=== PATIENT | female | born 1950 | race Caucasian/White ===

== ENCOUNTER 2018-01-25 10:54 | Inpatient (IN) | payer MEDICARE, BC ==
[~2018-01-25] VITALS: Ht 172.7 cm; Wt 72.6 kg
--- NOTE | 2018-01-25 11:02 | ER Report ---
History and Physical Time Seen By MD: 11:02 Hx. of Stated Complaint: PATIENT WAS STEPPED ON BY A HORSE. SHE IS REPORTING RIGHT SIDED RIB PAIN HPI/ROS 67-year-old otherwise healthy female not on any daily medications presents to the emergency department with pain in her right lower chest and right mid back after being stepped on by a horse prior to arrival. She states she was try to keep to horses at which time she got between material, was knocked down, and the larger of the 2 horses stepped on her chest at least once. She denies any other pain or trauma. She has no abdominal pain. She reports shortness of breath and pain with inspiration. Her pain is localized to the right side of her chest. She has no midline pain or left-sided chest pain. No other complaints or injuries. Allergies: Coded Allergies: Sulfa (Sulfonamide Antibiotics) (Verified Allergy, Intermediate, 01/25/18) aspirin (Verified Allergy, Intermediate, 01/25/18) Reviewed Nurses Notes: Yes Hx Smoking: No Smoking Status: Never Smoker Exposure to Second Hand Smoke?: No Hx Substance Use Disorder: No Hx Alcohol Use: No Constitutional Vital Sign - Last 24 Hours 01/25/18 01/25/18 01/25/18 01/25/18 10:54 10:56 11:09 11:14 Temp 97.6 Pulse 59 65 63 57 Resp 28 B/P (MAP) 115/71 Pulse Ox 98 93 98 O2 Delivery Nasal Cannula 01/25/18 01/25/18 01/25/18 01/25/18 11:19 11:24 11:29 11:34 Pulse 61 58 58 54 Resp 37 26 Pulse Ox 96 95 96 96 01/25/18 01/25/18 01/25/18 01/25/18 11:39 11:44 11:54 11:59 Pulse 53 55 53 55 Resp 26 30 24 Pulse Ox 98 98 99 01/25/18 01/25/18 01/25/18 01/25/18 12:04 12:14 12:19 12:24 Pulse 58 53 54 53 Resp 28 12 34 10 Pulse Ox 100 99 100 100 Intake and Output 01/25/18 01/25/18 01/26/18 15:00 23:00 07:00 Intake Total 1000 ml Balance 1000 ml Physical Exam General Appearance: The patient is alert, has no immediate need for airway protection and no signs of toxicity. Eyes: Pupils equal and round no pallor or injection. ENT, Mouth: Mucous membranes are moist. Respiratory: There are no retractions, lungs are distant due to swallow inspiration from pain. TTP of the right chest and right upper back Cardiovascular: Regular rate and rhythm. Gastrointestinal: Abdomen is soft and non tender, no masses, bowel sounds normal. Neurological: strength/sensation grossly in tact, no focal neuro deficits, n/v in tact throughout Skin: Warm and dry, no rashes. Musculoskeletal: See chest exam Neck is supple non tender. Extremities are nontender, nonswollen and have full range of motion. DIFFERENTIAL DIAGNOSIS: After history and physical exam differential diagnosis was considered for pneumothorax, rib fractures, pulmonary contusion, other intrathoracic injuries, other traumatic injuries including intra-abdominal injuries. Medical Decision Making Data Points Result Diagram: 01/25/18 1110 01/25/18 1110 Laboratory Hematology Test 01/25/18 11:10 01/25/18 13:01 Red Blood Count 4.52 M/uL (4.17-5.56) Mean Corpuscular Volume 95.1 fL (80.0-96.0) Mean Corpuscular Hemoglobin 33.0 pg (26.0-33.0) Mean Corpuscular Hemoglobin Concent 34.7 g/dL (32.0-36.0) Red Cell Distribution Width 13.2 % (11.5-14.5) Mean Platelet Volume 9.0 fL (7.2-11.1) Neutrophils (%) (Auto) 82.3 % (39.4-72.5) Lymphocytes (%) (Auto) 10.5 % (17.6-49.6) Monocytes (%) (Auto) 6.1 % (4.1-12.4) Eosinophils (%) (Auto) 0.5 % (0.4-6.7) Basophils (%) (Auto) 0.6 % (0.3-1.4) Nucleated RBC Relative Count (auto) 0.0 /100WBC Neutrophils # (Auto) 7.1 K/uL (2.0-7.4) Lymphocytes # (Auto) 0.9 K/uL (1.3-3.6) Monocytes # (Auto) 0.5 K/uL (0.3-1.0) Eosinophils # (Auto) 0.0 K/uL (0.0-0.5) Basophils # (Auto) 0.0 K/uL (0.0-0.1) Nucleated RBC Absolute Count (auto) 0.00 K/uL Sodium Level 141 mmol/L (137-145) Potassium Level 4.3 mmol/L (3.5-5.0) Chloride Level 105 mmol/L (98-107) Carbon Dioxide Level 27 mmol/L (22-31) Blood Urea Nitrogen 19 mg/dl (7-18) Creatinine 1.10 mg/dl (0.52-1.04) Glomerular Filtration Rate Calc 49.8 Random Glucose 114 mg/dl (75-110) Calcium Level 8.8 mg/dl (8.4-10.2) Total Bilirubin 0.5 mg/dl (0.2-1.3) Aspartate Amino Transf (AST/SGOT) 42 U/L (0-35) Alanine Aminotransferase (ALT/SGPT) 34 U/L (0-56) Alkaline Phosphatase 95 U/L (0-126) Total Protein 6.7 g/dl (6.3-8.2) Albumin 3.9 g/dl (3.5-5.0) Prothrombin Time 13.9 seconds (12.0-14.4) Prothromb Time International Ratio 1.06 Activated Partial Thromboplast Time 24 seconds (23-35) Chemistry Test 01/25/18 11:10 01/25/18 13:01 White Blood Count 8.6 k/uL (4.5-11.0) Red Blood Count 4.52 M/uL (4.17-5.56) Hemoglobin 14.9 g/dL (12.0-16.0) Hematocrit 43.0 % (34.0-47.0) Mean Corpuscular Volume 95.1 fL (80.0-96.0) Mean Corpuscular Hemoglobin 33.0 pg (26.0-33.0) Mean Corpuscular Hemoglobin Concent 34.7 g/dL (32.0-36.0) Red Cell Distribution Width 13.2 % (11.5-14.5) Platelet Count 225 K/uL (150-450) Mean Platelet Volume 9.0 fL (7.2-11.1) Neutrophils (%) (Auto) 82.3 % (39.4-72.5) Lymphocytes (%) (Auto) 10.5 % (17.6-49.6) Monocytes (%) (Auto) 6.1 % (4.1-12.4) Eosinophils (%) (Auto) 0.5 % (0.4-6.7) Basophils (%) (Auto) 0.6 % (0.3-1.4) Nucleated RBC Relative Count (auto) 0.0 /100WBC Neutrophils # (Auto) 7.1 K/uL (2.0-7.4) Lymphocytes # (Auto) 0.9 K/uL (1.3-3.6) Monocytes # (Auto) 0.5 K/uL (0.3-1.0) Eosinophils # (Auto) 0.0 K/uL (0.0-0.5) Basophils # (Auto) 0.0 K/uL (0.0-0.1) Nucleated RBC Absolute Count (auto) 0.00 K/uL Glomerular Filtration Rate Calc 49.8 Calcium Level 8.8 mg/dl (8.4-10.2) Total Bilirubin 0.5 mg/dl (0.2-1.3) Aspartate Amino Transf (AST/SGOT) 42 U/L (0-35) Alanine Aminotransferase (ALT/SGPT) 34 U/L (0-56) Alkaline Phosphatase 95 U/L (0-126) Total Protein 6.7 g/dl (6.3-8.2) Albumin 3.9 g/dl (3.5-5.0) Prothrombin Time 13.9 seconds (12.0-14.4) Prothromb Time International Ratio 1.06 Activated Partial Thromboplast Time 24 seconds (23-35) Coagulation Test 01/25/18 13:01 Prothrombin Time 13.9 seconds Prothromb Time International Ratio 1.06 Activated Partial Thromboplast Time 24 seconds EKG/Imaging Imaging X-ray: cxr was obtained. I viewed the images myself on the PACS system. My interpretation of the images is: right sided PTX with 7/8th rib fractures. The radiologist interpretation had no clinically significant variation from this interpretation. Results: CT scan of the chest was obtained. The results of the study areptx, 2-8th rib fractures, possible hemothorax. The study was read by the radiologist. I viewed the images myself on the PACS system. ED Course/Re-evaluation ED Course 67-year-old female brought to the emergency department by ambulance after her right chest was stepped on by a horse. She reports that her pain is isolated to her right chest and back. There is no loss of consciousness. She sustained a right sided hemopneumothorax with multiple rib fractures. A chest tube was placed under procedural sedation. Post chest tube x-ray shows re-expansion of the lung. I spoke with Dr. Bella Chase who is at the bedside as well and has reviewed the case and will admit the patient for further definitive care. Procedure Procedure: Chest tube placement. The indication for the procedure was a hemopneumothorax. A timeout was observed. The patient was prepped in a sterile fashion. The patient was anesthetized with 1% lidocaine with epinephrine. After blunt dissection a 28 Niuean chest tube was placed in the 5th intercostal space on the right side. The tube was sutured in place and dressed. Post placement chest x-ray demonstrated the tube to be in the appropriate position. Following placement of the tube the patient's condition was improved. The patient tolerated the procedure well there were no complications. The procedure was performed by myself. Procedure: Procedural sedation. A pre-sedation evaluation was completed on the patient at 1445. Patient is an appropriate candidate for procedural sedation. The risks of the sedation were discussed with the patient. A time out was completed. The patient was reevaluated immediately prior to initiation of sedation. The patient was sedated with ketamine and propofol. The patient was monitored with continuous pulse oximetry and satellite project site monitor. There were no complications and no significant hypoxemia. I remained at the bedside for the sedation. The total time I spent in the procedural sedation was 30 minutes. Post sedation evaluation: Patient was alert and cooperative, hemodynamically stable with appropriate respiratory status, temperature and pain control without ongoing nausea and vomiting. Decision to Disposition Date: Jan 25, 2018 Decision to Disposition Time: 15:41 Depart Departure Latest Vital Signs Vital Signs Date Time Temp Pulse Resp B/P (MAP) Pulse Ox O2 Delivery O2 Flow Rate FiO2 01/25/18 12:24 53 10 100 01/25/18 10:56 97.6 115/71 Nasal Cannula Impression: Primary Impression: Hemopneumothorax on right Additional Impression: Rib fractures Condition: Improved Disposition: Admitted from ER Problem Qualifiers Additional Impression: Rib fractures Encounter type: initial encounter Rib fracture type: multiple ribs Fracture type: closed Laterality: right Qualified Codes: S22.41XA - Multiple fractures of ribs, right side, initial encounter for closed fracture FRANCIS GUPTA MD Jan 25, 2018 11:02
[2018-01-25] MEDS ORDERED: ONDANSETRON 4 MG/2 ML VIAL IVP ONE ×2 (11:15→13:35)
[2018-01-25] MEDS ORDERED: NS(*) 0.9% 1000 ML BAG 1,000 ML IV ONE (11:20)
[2018-01-25] MEDS ORDERED: MORPHINE 2 MG/ML SYR IVP ONE (11:20)
[2018-01-25 12:00] LABS: PLATELET COUNT, AUTOMATED 225 K/uL (150-450)
--- NOTE | 2018-01-25 12:12 | RADIOLOGY IMAGING REPORT ---
FACILITY: [facility] PATIENT NAME: Muna Butler : 1950 MR: [id number] V: [id number] EXAM DATE: ORDERING PHYSICIAN: FRANCIS GUPTA TECHNOLOGIST: Location: [facility] - [place] Patient: Muna Butler : 1950 Visit/Account:[id number] Date of Sevice: 01/25/2018 CHEST SINGLE AP HISTORY: Chest pain right side. COMPARISON: None FINDINGS: Cardiomediastinal contours: The heart size is normal. Lungs and pleura: There is parenchymal density in the right lower lobe suggestive of a pleural effusi on and or infiltrate. There is minimal parenchymal density in the lingula that could represent an in filtrate and/or atelectasis. Bones/soft tissues: Lucency on the outer side of the right lateral chest wall is suggestive of subcut aneous emphysema. This would suggest rib fractures on the right side. There appear to be subtle fra ctures involving ribs 7 and 8. A rib series is recommended for further evaluation. IMPRESSION: 1. Subcutaneous emphysema outside the right lateral chest wall associated with rib fractures involvi ng ribs 7 and 8. Correlate with upcoming CT scan. 2. Parenchymal density in the right lower lobe likely representing atelectasis, infiltrate or pleura l effusion. 3. No findings of a pneumothorax. 4. Lingular density suggestive of scar and/or atelectasis. Report Dictated By: Emil Ennis MD at 01/25/2018 12:05 PM Report E-Signed By: Emil Ennis MD at 01/25/2018 12:09 PM WSN:[email or web address]
[2018-01-25] MEDS ORDERED: IOPAMIDOL 76% 100 ML INFUS BTL 100 ML ONE (12:25)
[2018-01-25 13:17] LABS: INR 1.06
--- NOTE | 2018-01-25 13:44 | RADIOLOGY IMAGING REPORT ---
FACILITY: [facility] PATIENT NAME: Muna Butler : 1950 MR: [id number] V: [id number] EXAM DATE: ORDERING PHYSICIAN: FRANCIS GUPTA TECHNOLOGIST: Location: [facility] - [place], [place] Patient: Muna Butler : 1950 Visit/Account:[id number] Date of Sevice: 01/25/2018 CT chest with contrast Indication: Stepped on chest by horse. Comparison: None. Technique: Axial CT images are obtained through the chest after administration of 75 mL Isovue 370 IV contrast. Reformatted coronal and sagittal images were reviewed. One of the following dose optimization techniques was utilized in the performance of this exam: Autom ated exposure control; adjustment of the mA and/or kV according to the patient's size; or use of an i terative reconstruction technique. Specific details can be referenced in the facility's radiology C T exam operational policy. Findings: Heart is normal size without pericardial effusion. Aorta shows no aneurysm or dissection. The pulmona ry arteries are grossly normal without indication of emboli. There is no mediastinal hematoma and there is no pathologic mediastinal adenopathy seen. There is a moderate right pneumothorax present approximately 30 percent without mediastinal shift. Th ere is small right pleural effusion and right basilar atelectasis. Small contusions to the right midd le lobe. Left lung shows no pneumothorax or pleural effusion with mild basilar atelectasis. Left lung shows no consolidations. No discrete lung nodules. Airways are clear. No acute vertebral body compressions. The T5 vertebral body shows mild compression with degenerative changes and prominent Schmorl's node. This findings appear chronic. There are small multilevel Schmor l nodes present with minimal degenerative changes seen elsewhere. The sternum appears intact. No appr eciable left rib fractures. Nondisplaced fractures of the following right ribs: Anterior second, thir d, fourth, anterolateral fifth, sixth and seventh. Lateral eighth. No other discrete right rib fractu res. Chest wall shows no enlarged axillary lymph nodes or masses. Subcutaneous air along the right la teral chest wall. Limited views of the upper abdomen are unremarkable. IMPRESSION: 1. Moderate right pneumothorax approximately 30 percent without mediastinal shift. Small right pleura l effusion with right basilar atelectasis and small contusions in the right middle lobe. 2. Multiple nondisplaced right rib fractures from 2 through 8. Subcutaneous air in the right chest wa ll. 3. Left lung shows mild basilar atelectasis. No other focal abnormality. 4. Other chronic findings as above. I called report to SAHIL Olivera at 01/25/2018 1:40 PM. Report Dictated By: Juan F Colbert at 01/25/2018 1:26 PM Report E-Signed By: Juan F Colbert at 01/25/2018 1:41 PM WSN:[id number]
[2018-01-25] MEDS ORDERED: PROPOFOL EMUL 10MG/ML 20 ML VL IV ONE (13:50)
[2018-01-25] MEDS ORDERED: KETAMINE HCL 200 MG/20 ML MDV IVP ONE (13:50)
[2018-01-25] MEDS ORDERED: LORazepam 2 MG/ML VIAL ONE (14:43)
[2018-01-25] MEDS ORDERED: MORPHINE 4 MG/ML SDV ONE (14:44)
--- NOTE | 2018-01-25 15:05 | RADIOLOGY IMAGING REPORT ---
FACILITY: [facility] PATIENT NAME: Muna Butler : 1950 MR: [id number] V: [id number] EXAM DATE: ORDERING PHYSICIAN: FRANCIS GUPTA TECHNOLOGIST: Location: [facility] - [place] Patient: Muna Butler : 1950 Visit/Account:[id number] Date of Sevice: 01/25/2018 2 VIEWS CHEST INDICATION: Chest tube placement. COMPARISON: X-ray done earlier in the day. CT chest done earlier in the day. FINDINGS: Cardiomediastinal silhouette and pulmonary vessels within normal limits. Right chest tube is in place. No residual appreciable pneumothorax. No significant residual pleural f luid. Continued right basilar atelectasis. Minimal left basilar atelectasis. No left effusion or pneu mothorax. Subcutaneous air seen along the right chest wall and is unchanged. The upper lung segura ar e clear. Upper abdomen is unremarkable. Multiple right rib fractures again identified. No other acute bony abnormality. IMPRESSION: 1. Right chest tube is in place. No appreciable residual pneumothorax or pleural fluid. Continued rig ht basilar atelectasis. Minimal left basilar atelectasis. Report Dictated By: Juan F Colbert at 01/25/2018 3:00 PM Report E-Signed By: Juan F Colbert at 01/25/2018 3:02 PM WSN:[id number]
[2018-01-25] MEDS ORDERED: MELA5TAB21 (16:18)
[2018-01-25] MEDS ORDERED: MULT1TAB54 PO (16:18)
[2018-01-25 16:33] VITALS: BP 134/79
[2018-01-25] MEDS ORDERED: MORPHINE 2 MG/ML SYR IVP PRN (16:45)
[2018-01-25] MEDS: APAP/HYDROCODONE 325/5 TAB PO PRN ×2 (17:19→22:12)
[2018-01-25 19:50] VITALS: BP 146/88
[2018-01-25] MEDS: KETOROLAC 15 MG/ML VIAL IVP SCH (20:36)
[2018-01-25 22:14] VITALS: BP 123/75
[2018-01-26] MEDS: ONDANSETRON 4 MG/2 ML VIAL IVP PRN ×2 (01:43→06:40)
[2018-01-26] MEDS: APAP/HYDROCODONE 325/5 TAB PO PRN ×2 (03:34→17:06)
[2018-01-26] MEDS: KETOROLAC 15 MG/ML VIAL IVP SCH ×4 (03:34→20:47)
[2018-01-26 03:37] VITALS: BP 137/71
--- NOTE | 2018-01-26 05:21 | RADIOLOGY IMAGING REPORT ---
[place] [facility] [place] Muna [place] : 1950 MR: [id number] V: [id number] EXAM DATE: ORDERING PHYSICIAN: KATHERINE HEADLEY TECHNOLOGIST: Location: [facility] - [place] Patient: Muna Butler : 1950 Visit/Account:[id number] Date of Sevice: 01/26/2018 CHEST SINGLE AP HISTORY: Trauma COMPARISON: 01/25/2018 FINDINGS: Cardiomediastinal contours: Normal Lungs and pleura: Stable right chest tube. No measurable pneumothorax. Improving aeration of the bila teral lung bases. Bones/soft tissues: Mild subcutaneous emphysema within the right chest wall, decreased. Right rib fra ctures. Other findings: None significant IMPRESSION: 1. Stable right chest tube. 2. Improving aeration of the bilateral lung bases. Report Dictated By: Kiran Kearney MD at 01/26/2018 5:10 AM Report E-Signed By: Kiran Kearney MD at 01/26/2018 5:17 AM WSN:[id number]
[2018-01-26 07:37] VITALS: BP 139/77
--- NOTE | 2018-01-26 10:47 | General Surgery Progress Note ---
Physical Exam Vital Signs Date Time Temp Pulse Resp B/P (MAP) Pulse Ox O2 Delivery O2 Flow Rate FiO2 01/26/18 03:37 97.7 73 22 137/71 (93) 94 Nasal Cannula 2.0 General Appearance: Alert, Awake, No Acute Distress Neuro: No Gross deficits Cardiovascular: Normal Rhythm & Peripheral Pulses Respiratory: Clear to Auscultation, Other (CT tidals with respiration, small air leak persists.) Extremities: Warm Result Diagram: 01/25/18 1110 01/25/18 1110 Assessment and Plan Problems: (1) Hemopneumothorax on right Status: Resolved Assessment & Plan: Continue chest tube to suction for now. Follow up CXR in am. Pulmonary toilet. Pain control. (2) Rib fractures Status: Acute Assessment & Plan: Pain control and pulmonary toilet Time Spent: < 30 min Exam Sepsis Risk: No Definite Risk Problem Qualifiers (1) Rib fractures: Encounter type: subsequent encounter Rib fracture type: multiple ribs Fracture type: closed Laterality: right KATHERINE HEADLEY MD Jan 26, 2018 07:21
[2018-01-26 12:07] VITALS: Ht 172.7 cm; Wt 72.6 kg
--- NOTE | 2018-01-26 13:30 | HISTORY AND PHYSICAL ---
DATE OF ADMISSION: January 25, 2018 CHIEF COMPLAINT Horse accident. HISTORY OF PRESENT ILLNESS Muna was at her home working with horses. She was caught between two horses and then eventually was stepped on by the larger horse. This was on her right chest only. She presented to the [facility] Emergency Department with chest pain. Workup has included chest x-rays as well as chest CT. This workup demonstrates a right pneumothorax and rib fractures # two through eight. No other injuries are identified. The patient does not have any complaints of any other pain. ALLERGIES She has allergies to SULFA, ASPIRIN and PREDNISONE. CURRENT MEDICATIONS No medications chronically. PAST MEDICAL HISTORY Essentially negative with no diabetes mellitus, epilepsy, asthma, rheumatic fever, mitral valve prolapse, CA, CVA, congenital heart, kidney or lung disease. PAST SURGICAL HISTORY * Tubal ligation. * Tonsillectomy. * Appendectomy. The patient denies abnormal reactions to anesthesia. She does not have abnormal bleeding or clotting tendencies. SOCIAL HISTORY The patient is . She does not smoke or use street drugs. She drinks one glass of wine per week. REVIEW OF SYSTEMS Essentially negative. PHYSICAL EXAMINATION GENERAL: A sleepy female, in no apparent distress at the time of my examination in the ED. VITAL SIGNS: Pulse of 53, respirations 34, SaO2 100%, blood pressure adequate. HEAD: Normocephalic. EYES: Pupils equal, round, reactive to light, irides blue. OROPHARYNX: Dry mucous membranes, own teeth present. NECK: Trachea midline. CHEST: Splints with deep inspiration. Clear at the apices, decreased breath sounds in the bases. COR: Regular rate and rhythm. ABDOMEN: Soft, positive bowel sounds, right lower quadrant scar consistent with reported appendectomy, non tender, no external evidence of trauma.. EXTREMITIES: Without cyanosis, clubbing or edema. AFFECT: Sleepy. NEUROLOGIC: Grossly intact. LABORATORY ANALYSIS White blood count 8.6, hemoglobin 14.9, hematocrit 43, platelets 225. Potassium 4.3, creatinine 1.1, glucose 114. IMAGING Chest CT reveals some subcutaneous air, moderate right pneumothorax 30%, rib fractures two through eight on the right. No other evidence of trauma. ANALYSIS Status post accident with horse. PLAN 1. Chest trauma, right pneumothorax and right rib fractures. Chest tube has been inserted by the emergency department physician and chest tube to suction. Pain control. Incentive spirometer. Increase activity. 2. Monitor for other injuries. MTDD
--- NOTE | 2018-01-26 14:28 | HISTORY AND PHYSICAL ---
DATE OF ADMISSION: January 25, 2018 CHIEF COMPLAINT Injury by horse with right-sided rib pain. HISTORY OF PRESENT ILLNESS This 67-year-old female was brought to the [facility] Emergency Department after she had sustained injury from a horse. 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 She experienced immediate pain and was brought to the Emergency Department where workup has revealed multiple right rib fractures two through eight and a right pneumothorax. Dr. Whatley placed a right chest tube, and the patient is scheduled for admission. The patient denies pain anywhere else. She did have shortness of breath prior to placement of the chest tube and continues to have pain with inspiration. She denies any other areas of injury or pain. ALLERGIES SULFA, ASPIRIN, and PREDNISONE. MEDICATIONS None. PAST MEDICAL HISTORY Essentially negative. PAST SURGICAL HISTORY * Tubal ligation. * Tonsillectomy. * Appendectomy. The patient denies abnormal reactions to anesthesia. She has no abnormal bleeding or clotting tendencies. SOCIAL HISTORY The patient is . She does not smoke. She has one drink of alcohol per week perhaps. PHYSICAL EXAMINATION GENERAL: The patient is sleepy from having undergone her chest tube placement, but able to respond. VITAL SIGNS: Pulse of 57, SaO2 98%, blood pressure 115/71, respirations 28. HEAD: Normocephalic. EYES: Pupils equal, round, and reactive. Irides blue. OROPHARYNX: Slightly dry mucous membranes. Own teeth present. NECK: Trachea midline without adenopathy. CHEST: Splinting with deep inspiration, especially on the right. Palpable tenderness on the right side of the chest. LUNGS: Fairly clear, but decreased in the bases, especially on the right. COR: Regular rate and rhythm. ABDOMEN: Soft, slightly obese. Positive bowel sounds. Nontender. No evidence of trauma. EXTREMITIES: Without cyanosis, clubbing, or edema. NEUROLOGIC: Grossly intact, although the patient is rather sleepy from her sedation. LABORATORY ANALYSES White blood count 8.6, hemoglobin 14.9, hematocrit 43, platelets 225. Potassium 4.3, creatinine 1.1, glucose 114. Other labs within normal limits except mild elevation of her transaminases. IMAGING CT of her chest reveals a right pneumothorax; post chest tube placement reveals resolution of the right pneumothorax. ANALYSIS AND PLAN Status post injuries sustained in a horse accident with the primary injury to the chest wall. 1. Right hemopneumothorax. Chest tube has been placed. Admit. Place chest tube to suction. Serial chest x-rays. Pain control. Pulmonary toilet. 2. Rib fractures two through eight, right. Pain control. Inceptive spirometry. 3. Monitor for other injuries. [id number]
[2018-01-26 15:09] VITALS: BP 150/82
[2018-01-26 19:18] VITALS: BP 130/70
[2018-01-27] MEDS: APAP/HYDROCODONE 325/5 TAB PO PRN ×2 (00:02→05:40)
[2018-01-27 03:08] VITALS: BP 114/65
[2018-01-27] MEDS: KETOROLAC 15 MG/ML VIAL IVP SCH ×4 (03:09→21:11)
--- NOTE | 2018-01-27 05:26 | RADIOLOGY IMAGING REPORT ---
FACILITY: [facility] PATIENT NAME: Muna Butler : 1950 MR: [id number] V: [id number] EXAM DATE: ORDERING PHYSICIAN: KATHERINE HEADLEY TECHNOLOGIST: Location: [facility] Patient: Muna Butler : 1950 Visit/Account:[id number] Date of Sevice: 01/27/2018 CHEST SINGLE AP HISTORY: Chest tube COMPARISON: 01/26/2018 FINDINGS: Cardiomediastinal contours: Normal Lungs and pleura: Stable right chest tube. Stable mild right basilar pleural-parenchymal opacities. S table mild left retrocardiac airspace disease. No pneumothorax. Bones/soft tissues: Mild subcutaneous emphysema within the right chest wall. Other findings: None significant IMPRESSION: 1. Stable right chest tube. No pneumothorax. 2. Stable bibasilar airspace disease. Report Dictated By: Kiran Kearney MD at 01/27/2018 5:17 AM Report E-Signed By: Kiran Kearney MD at 01/27/2018 5:22 AM WSN:[id number]
[2018-01-27 07:26] VITALS: BP 128/74
--- NOTE | 2018-01-27 10:19 | General Surgery Progress Note ---
Subjective Patient Complains of: Cardiovascular: Chest Pain (related to chest wall trauma.) Gastrointestinal: Nausea, Vomiting Physical Exam Vital Signs Date Time Temp Pulse Resp B/P (MAP) Pulse Ox O2 Delivery O2 Flow Rate FiO2 01/27/18 07:27 96 Nasal Cannula 1.0 01/27/18 07:26 98.0 57 14 128/74 (92) Intake and Output 01/28/18 06:59 Intake Total 100 ml Balance 100 ml Intake Oral 100 ml General Appearance: Alert, Awake, Afebrile Neuro: No Gross deficits Respiratory: No Respiratory Distress, Other (less splinting with deep inspiration, decreased breath sounds bilateral bases, (L) chest tube without air leak, 140mL serosanguineous fluid over prior 24 hours.) Chest: Other (Tenderness to palpation right chest laterally) GI: Soft and Non-Tender, Other (some flatus but no bowel movement yet) Result Diagram: 01/25/18 1110 01/26/18 1528 Assessment and Plan Problems: (1) Hemopneumothorax on right Status: Resolved Assessment & Plan: Continue chest tube to suction for now. Follow up CXR in am. Pulmonary toilet. Pain control. 01/27/18 Patient is now without air leak so will change CT to water seal. Follow up chest xray in am. (2) Rib fractures Status: Acute Assessment & Plan: Pain control and pulmonary toilet 01/27/18: Patient has expected chest wall pain with her rib fractures. Attempt to change pain medications and nausea medication for better efficacy. Mobilize more and attempt to remove baker catheter. (3) Nausea & vomiting Status: Acute Assessment & Plan: 01/27/18: Attempt to change pain medication to see if that helps her at all with her nausea. Also, add phenergan because the zofran does not appear helpful Exam Sepsis Risk: No Definite Risk Problem Qualifiers (1) Rib fractures: Encounter type: subsequent encounter Rib fracture type: multiple ribs Fracture type: closed Laterality: right (2) Nausea & vomiting: Vomiting type: unspecified KATHERINE HEADLEY MD Jan 27, 2018 10:19
[2018-01-27] MEDS: traMADol 50 MG TAB PO PRN (11:00)
[2018-01-27] MEDS: PROMETHAZINE 25 MG/ML 1 ML AMP IVP PRN (11:01)
[2018-01-27 14:46] VITALS: BP 130/84
[2018-01-27] MEDS: DOCUSATE SODIUM 100 MG CAP PO SCH ×2 (14:48→21:11)
[2018-01-27 19:26] VITALS: BP 116/87
[2018-01-27 23:04] VITALS: BP 129/71
[2018-01-28] MEDS: traMADol 50 MG TAB PO PRN (01:50)
[2018-01-28] MEDS: KETOROLAC 15 MG/ML VIAL IVP SCH ×4 (04:40→21:41)
[2018-01-28 04:42] VITALS: BP 136/73
--- NOTE | 2018-01-28 06:53 | RADIOLOGY IMAGING REPORT ---
[place] [facility] [place] Muna Butler : 1950 MR: [id number] V: [id number] EXAM DATE: ORDERING PHYSICIAN: KATHERINE HEADLEY TECHNOLOGIST: Location: [facility] - [place] Patient: Muna Butler : 1950 Visit/Account:[id number] Date of Sevice: 01/28/2018 CHEST SINGLE AP HISTORY: follow up pneumothorax COMPARISON: 01/27/2018 FINDINGS: Cardiomediastinal contours: Normal Lungs and pleura: Right chest tube has changed in position. No measurable pneumothorax. Stable right basilar pleural-parenchymal opacities. Stable streaky opacities at the left lung base. Bones/soft tissues: Normal Other findings: None significant IMPRESSION: 1. A right chest tube has changed in position. No measurable pneumothorax. 2. Stable bibasilar airspace disease, right greater than left. Report Dictated By: Kiran Kearney MD at 01/28/2018 6:48 AM Report E-Signed By: Kiran Kearney MD at 01/28/2018 6:50 AM WSN:[id number]
[2018-01-28 07:31] VITALS: BP 133/82
[2018-01-28] MEDS: DOCUSATE SODIUM 100 MG CAP PO SCH ×2 (08:21→21:49)
--- NOTE | 2018-01-28 10:22 | General Surgery Progress Note ---
Subjective Patient Complains of: Neurological: Dizziness (When up to bathroom), No: Confusion, Slurred Speech Cardiovascular: Chest Pain (Mostly when moving; keeps ice pack at tube insertion site.) Gastrointestinal: No Nausea, No Vomiting Musculoskeletal: Pain (As above, due to chest tube.) Physical Exam Vital Signs Date Time Temp Pulse Resp B/P (MAP) Pulse Ox O2 Delivery O2 Flow Rate FiO2 01/28/18 07:31 98.1 68 15 133/82 (99) 88 Nasal Cannula 0.5 Intake and Output 01/29/18 06:59 Intake Total 200 ml Balance 200 ml Intake Oral 200 ml General Appearance: Alert, Awake, No Acute Distress, Afebrile Neuro: No Gross deficits Cardiovascular: Regular Rate and Rhythm Respiratory: No Respiratory Distress, Other (Mildly diminished breath sounds on Rt., CTA on Lt.) Chest: Other (30 cc chest tube drainage in past 24 hrs.) Result Diagram: 01/25/18 1110 01/26/18 1528 Imaging CXR showed no pneumothorax. Assessment and Plan Problems: (1) Hemopneumothorax on right Status: Resolved Assessment & Plan: Continue chest tube to suction for now. Follow up CXR in am. Pulmonary toilet. Pain control. 01/27/18 Patient is now without air leak so will change CT to water seal. Follow up chest xray in am. 01/28/18 Pt. is stable. Pleural drainage decreasing - if remains low will remove tube in AM. (2) Rib fractures Status: Acute Assessment & Plan: Pain control and pulmonary toilet 01/27/18: Patient has expected chest wall pain with her rib fractures. Attempt to change pain medications and nausea medication for better efficacy. Mobilize more and attempt to remove baker catheter. (3) Nausea & vomiting Status: Acute Assessment & Plan: 01/27/18: Attempt to change pain medication to see if that helps her at all with her nausea. Also, add phenergan because the zofran does not appear helpful Condition Stable, improved. Time Spent: < 30 min Exam Sepsis Risk: No Definite Risk Problem Qualifiers (1) Rib fractures: Encounter type: subsequent encounter Rib fracture type: multiple ribs Fracture type: closed Laterality: right (2) Nausea & vomiting: Vomiting type: unspecified LV DUEÑAS IV, MD Jan 28, 2018 10:22
[2018-01-28 11:38] VITALS: BP 129/80
[2018-01-28] MEDS: APAP/HYDROCODONE 325/5 TAB PO PRN ×2 (11:47→18:43)
[2018-01-28 15:40] VITALS: BP 146/77
[2018-01-28 19:02] VITALS: BP 137/68
[2018-01-28 23:44] VITALS: BP 127/65
[2018-01-29] VITALS (7 sets, daily range): BP systolic 112–152; BP diastolic 60–87
[2018-01-29] MEDS: KETOROLAC 15 MG/ML VIAL IVP SCH ×4 (02:20→20:50)
[2018-01-29] MEDS: APAP/HYDROCODONE 325/5 TAB PO PRN ×2 (06:51→20:50)
[2018-01-29] MEDS ORDERED: MAGNESIUM HYDROXIDE* 30ML UDCP PO PRN (09:00)
[2018-01-29] MEDS ORDERED: BISACODYL 10 MG SUPP PR PRN (09:00)
--- NOTE | 2018-01-29 09:20 | General Surgery Progress Note ---
Subjective Patient Complains of: Neurological: Weakness, No: Confusion, Dizziness Cardiovascular: Chest Pain (At site of tube insertion & rib fxs.) Respiratory: No: Cough, Shortness of Breath Gastrointestinal: Other (Constipation. Taking reg. diet well.), No Nausea, No Vomiting Musculoskeletal: Pain (As above; better with tube out (see below).) Physical Exam Vital Signs Date Time Temp Pulse Resp B/P (MAP) Pulse Ox O2 Delivery O2 Flow Rate FiO2 01/29/18 07:24 98.2 65 20 137/69 (91) 86 Room Air 01/29/18 07:24 1.0 General Appearance: Alert, Awake, No Acute Distress, Afebrile Respiratory: No Respiratory Distress, Clear to Auscultation (CTA on Lt.; diminished BS on Rt. but no rales or rhonchi.) Result Diagram: 01/25/18 1110 01/26/18 1528 Imaging CXR (after tube removal - see below) shows full expansion of Rt. lung with well- delineated markings in lowest portion of lung; no fluid collection. Lt. lung appears nl. (my reading, immediately after chest tube removal). Assessment and Plan Problems: (1) Hemopneumothorax on right Status: Resolved Assessment & Plan: Continue chest tube to suction for now. Follow up CXR in am. Pulmonary toilet. Pain control. 01/27/18 Patient is now without air leak so will change CT to water seal. Follow up chest xray in am. 01/28/18 Pt. is stable. Pleural drainage decreasing - if remains low will remove tube in AM. (2) Rib fractures Status: Acute Assessment & Plan: Pain control and pulmonary toilet 01/27/18: Patient has expected chest wall pain with her rib fractures. Attempt to change pain medications and nausea medication for better efficacy. Mobilize more and attempt to remove baker catheter. 01/29/18: Little change from yest. Only 35 cc chest tube drainage in past 24 hrs. so chest tube was removed by me, F/U CXR shows no pneumothorax. Still needing supplemental O2 (on RA, O2 satn. dropped to 85%). Will continue NC O2 for now but repeat trials without it today; also, will get pt. up out of bed. Adding Miralax and Milk of Mag. for constipation. Possible D/C home ana. (3) Nausea & vomiting Status: Resolved Assessment & Plan: 01/27/18: Attempt to change pain medication to see if that helps her at all with her nausea. Also, add phenergan because the zofran does not appear helpful Time Spent: < 30 min Exam Sepsis Risk: No Definite Risk Problem Qualifiers (1) Rib fractures: Encounter type: subsequent encounter Rib fracture type: multiple ribs Fracture type: closed Laterality: right (2) Nausea & vomiting: Vomiting type: unspecified LV DUEÑAS IV, MD Jan 29, 2018 09:20
[2018-01-29] MEDS: DOCUSATE SODIUM 100 MG CAP PO SCH ×2 (09:43→20:50)
[2018-01-29] MEDS: POLYETHYLENE GLYCOL 17 GM PKT PO SCH (09:43)
[2018-01-29] MEDS: PROMETHAZINE 25 MG/ML 1 ML AMP IVP PRN (12:52)
--- NOTE | 2018-01-29 14:04 | RADIOLOGY IMAGING REPORT ---
FACILITY: [facility] [place] PATIENT NAME: Muna Butler : 1950 MR: [id number] V: [id number] EXAM DATE: ORDERING PHYSICIAN: LV DUEÑAS TECHNOLOGIST: Location: [facility] [place] Patient: Muna Butler : 1950 Visit/Account:[id number] Date of Sevice: 01/29/2018 CHEST SINGLE AP Indication: Chest tube removal.. Comparison: 2017. Findings: Right chest tube has been removed. There may be a tiny residual apical pneumothorax present. Right ba silar atelectasis. No significant right effusion. The right lung is otherwise clear. Left lung is derrek ar with mild scarring in the base without pneumothorax or effusion. No discrete nodule. Upper abdomen is unremarkable. No acute bony abnormality. IMPRESSION: 1. Removal right chest tube. There may be a tiny right apical pneumothorax. No significant residual r ight pleural fluid. Right basilar atelectasis. Report Dictated By: Juan F Colbert at 01/29/2018 1:57 PM Report E-Signed By: Juan F Colbert at 01/29/2018 1:59 PM WSN:[id number]
[2018-01-30] MEDS: KETOROLAC 15 MG/ML VIAL IVP SCH ×3 (02:34→14:51)
[2018-01-30] MEDS: APAP/HYDROCODONE 325/5 TAB PO PRN (02:40)
[2018-01-30 02:41] VITALS: BP 139/80
[2018-01-30 07:18] VITALS: BP 162/75
--- NOTE | 2018-01-30 09:36 | General Surgery Progress Note ---
Subjective Progress Notes Subjective small volume bile emesis this am Patient Complains of: Neurological: Other (no neuro complaints) Respiratory: Other (feels movement in the right ribs with deep resp) Gastrointestinal: Nausea, Vomiting, Flatus, Other (no BM since prior to admit) Musculoskeletal: Impaired Mobility, Other (difficulty moving RUE) Physical Exam Vital Signs Date Time Temp Pulse Resp B/P (MAP) Pulse Ox O2 Delivery O2 Flow Rate FiO2 01/30/18 07:18 97.8 65 16 162/75 (104) 93 Nasal Cannula 0.5 General Appearance: Alert, Awake, No Acute Distress, Afebrile Neuro: No Gross deficits, Other (gcs 15) Eyes: PERRLA ENT: Moist Mucous Membranes Neck: Other (Non- tender) Cardiovascular: Normal Rhythm & Peripheral Pulses, Regular Rate and Rhythm, No Edema, No JVD Respiratory: No Respiratory Distress, Clear to Auscultation, Other (no crepitus , right chest tube site with old serous drainage ) GI: Soft and Non-Tender : No CVA Tenderness Musculoskeletal: No Weakness/Pain Extremities: Soft and Non Tender, Warm, Pulses, Perfused Integumentary: Skin Intact without Lesion / Mass Psych: Alert & Oriented X3, Appropriate Mood & Affect Result Diagram: 01/26/18 1528 Monitor Interpretation: Normal Sinus Rhythm Assessment and Plan Problems: (1) Hemopneumothorax on right Status: Acute Assessment & Plan: Continue chest tube to suction for now. Follow up CXR in am. Pulmonary toilet. Pain control. 01/27/18 Patient is now without air leak so will change CT to water seal. Follow up chest xray in am. 01/28/18 Pt. is stable. Pleural drainage decreasing - if remains low will remove tube in AM. 01/30/2018 chest tube removed yesterday per Dr Nunn. Post removal CXR with small apical pneumothorax. Repeat CXR this am pending. cont pulm toilet, check FVC. (2) Rib fractures Status: Acute Assessment & Plan: Pain control and pulmonary toilet 01/27/18: Patient has expected chest wall pain with her rib fractures. Attempt to change pain medications and nausea medication for better efficacy. Mobilize more and attempt to remove baker catheter. 01/29/18: Little change from yest. Only 35 cc chest tube drainage in past 24 hrs. so chest tube was removed by me, F/U CXR shows no pneumothorax. Still needing supplemental O2 (on RA, O2 satn. dropped to 85%). Will continue NC O2 for now but repeat trials without it today; also, will get pt. up out of bed. Adding Miralax and Milk of Mag. for constipation. Possible D/C home ana. 01/30/2018 persistent chest wall pain, parish with deep resp. Cont pulm toilet and close observation. Not ready to DC home yet. (3) Nausea & vomiting Status: Acute Assessment & Plan: 01/27/18: Attempt to change pain medication to see if that helps her at all with her nausea. Also, add phenergan because the zofran does not appear helpful 01/30/2018 bilious emesis persists. ABD exam benign. will check LFTs, CBC and Lipase. will adjust pain meds and PO cathartics. cont close observation. Time Spent: > 30 min Exam Sepsis Risk: No Definite Risk Problem Qualifiers (1) Rib fractures: Encounter type: subsequent encounter Rib fracture type: multiple ribs Fracture type: closed Laterality: right (2) Nausea & vomiting: Vomiting type: bilious vomiting Qualified Codes: R11.14 - Bilious vomiting BUDDY MONTERO MD Jan 30, 2018 09:35
--- NOTE | 2018-01-30 09:39 | RADIOLOGY IMAGING REPORT ---
FACILITY: [facility] - [place] PATIENT NAME: Muna Butler : 1950 MR: [id number] V: [id number] EXAM DATE: ORDERING PHYSICIAN: BUDDY MONTERO TECHNOLOGIST: Location: [facility] Patient: Muna Butler : 1950 Visit/Account:[id number] Date of Sevice: 01/30/2018 CHEST SINGLE AP HISTORY: Pneumonia. COMPARISON: January 29, 2018 chest x-ray. FINDINGS: Cardiomediastinal contours: The heart size is normal. Lungs and pleura: There is parenchymal density in the right lower lobe. There is a small right pleura l effusion. There is linear density in the left lung base and a small left pleural effusion. Bones/soft tissues: There are multiple rib fractures on the right side that are mildly displaced. Aga in noted is right-sided subcutaneous emphysema. IMPRESSION: 1. Parenchymal density in the right lower lobe with a small pleural effusion probably related to the patient's right sided rib fractures. Again noted is subcutaneous emphysema outside the right chest wa ll. These findings are stable. 2. There is subsegmental atelectasis and a smaller left pleural effusion. Report Dictated By: Emil Ennis MD at 01/30/2018 9:32 AM Report E-Signed By: Emil Ennis MD at 01/30/2018 9:35 AM WSN:[id number]
[2018-01-30] MEDS: POLYETHYLENE GLYCOL 17 GM PKT PO SCH (09:45)
[2018-01-30] MEDS ORDERED: MINERAL OIL PO ONE (09:50)
[2018-01-30] MEDS: ONDANSETRON 4 MG/2 ML VIAL IVP PRN (10:01)
[2018-01-30] MEDS: DOCUSATE SODIUM 100 MG CAP PO SCH ×2 (10:41→21:25)
[2018-01-30 11:13] VITALS: BP 152/82
[2018-01-30 14:27] VITALS: BP 123/66
[2018-01-30 15:24] LABS: PLATELET COUNT, AUTOMATED 154 K/uL (150-450)
[2018-01-30] MEDS ORDERED: BISACODYL 10 MG SUPP PR SCH (21:00)
[2018-01-30 21:11] VITALS: BP 153/78
[2018-01-30 22:58] VITALS: BP 148/80
[2018-01-31 02:59] VITALS: BP 149/95
[2018-01-31] MEDS ORDERED: BISACODYL 10 MG SUPP PR SCH ×2 (06:00→08:00)
[2018-01-31 07:33] VITALS: BP 164/95
[2018-01-31] MEDS: POLYETHYLENE GLYCOL 17 GM PKT PO SCH (09:00)
--- NOTE | 2018-01-31 09:00 | General Surgery Progress Note ---
Subjective Progress Notes Subjective feels much better this am. wants to go home Physical Exam Vital Signs Date Time Temp Pulse Resp B/P (MAP) Pulse Ox O2 Delivery O2 Flow Rate FiO2 01/31/18 07:59 94 Nasal Cannula 1.0 01/31/18 07:33 98.1 61 14 164/95 (118) Intake and Output 02/01/18 06:59 # Voids 1 General Appearance: Alert, Awake, No Acute Distress, Afebrile Neuro: No Gross deficits ENT: Normal Neck: No Masses Cardiovascular: Normal Rhythm & Peripheral Pulses Respiratory: No Respiratory Distress, Clear to Auscultation, Other (BS= bilat, no crepitus) GI: Soft and Non-Tender Musculoskeletal: No Weakness/Pain Extremities: Soft and Non Tender, Warm, Pulses, Perfused Integumentary: Skin Intact without Lesion / Mass Psych: Alert & Oriented X3, Appropriate Mood & Affect Result Diagram: 01/30/18 1517 01/30/18 1517 Monitor Interpretation: Normal Sinus Rhythm Assessment and Plan Problems: (1) Hemopneumothorax on right Status: Acute Assessment & Plan: Continue chest tube to suction for now. Follow up CXR in am. Pulmonary toilet. Pain control. 01/27/18 Patient is now without air leak so will change CT to water seal. Follow up chest xray in am. 01/28/18 Pt. is stable. Pleural drainage decreasing - if remains low will remove tube in AM. 01/30/2018 chest tube removed yesterday per Dr Nunn. Post removal CXR with small apical pneumothorax. Repeat CXR this am pending. cont pulm toilet, check FVC. CXR yesterday without significant residual pneumothorax. FVC 48% predicted at 1.8 liters. (2) Rib fractures Status: Acute Assessment & Plan: Pain control and pulmonary toilet 01/27/18: Patient has expected chest wall pain with her rib fractures. Attempt to change pain medications and nausea medication for better efficacy. Mobilize more and attempt to remove baker catheter. 01/29/18: Little change from yest. Only 35 cc chest tube drainage in past 24 hrs. so chest tube was removed by me, F/U CXR shows no pneumothorax. Still needing supplemental O2 (on RA, O2 satn. dropped to 85%). Will continue NC O2 for now but repeat trials without it today; also, will get pt. up out of bed. Adding Miralax and Milk of Mag. for constipation. Possible D/C home ana. 01/30/2018 persistent chest wall pain, parish with deep resp. Cont pulm toilet and close observation. Not ready to DC home yet. 01/31/2018 Pt feels better without narcotics overnight, feels the meds made her sick. minimal chest wall pain this am. will check RA sat as pt lives >1000' higher than [place], may need home O2. (3) Nausea & vomiting Status: Acute Assessment & Plan: 01/27/18: Attempt to change pain medication to see if that helps her at all with her nausea. Also, add phenergan because the zofran does not appear helpful 01/30/2018 bilious emesis persists. ABD exam benign. will check LFTs, CBC and Lipase. will adjust pain meds and PO cathartics. cont close observation. 01/31/2018 no further NV. abd benign. remains constipated. optimal to have BM prior to DC. Cont [place] cathartics. Exam Sepsis Risk: No Definite Risk Problem Qualifiers (1) Rib fractures: Encounter type: subsequent encounter Rib fracture type: multiple ribs Fracture type: closed Laterality: right (2) Nausea & vomiting: Vomiting type: bilious vomiting Qualified Codes: R11.14 - Bilious vomiting BUDDY MONTERO MD Jan 31, 2018 09:00
[2018-01-31] MEDS: DOCUSATE SODIUM 100 MG CAP PO SCH (09:04)
--- NOTE | 2018-01-31 09:06 | Hospitalist Depart ---
Discharge Summary Reason for Hosp/Final Diag: (1) Hemopneumothorax on right Status: Acute Hospital Course & Plan: Continue chest tube to suction for now. Follow up CXR in am. Pulmonary toilet. Pain control. 01/27/18 Patient is now without air leak so will change CT to water seal. Follow up chest xray in am. 01/28/18 Pt. is stable. Pleural drainage decreasing - if remains low will remove tube in AM. 01/30/2018 chest tube removed yesterday per Dr Nunn. Post removal CXR with small apical pneumothorax. Repeat CXR this am pending. cont pulm toilet, check FVC. CXR yesterday without significant residual pneumothorax. FVC 48% predicted at 1.8 liters. (2) Rib fractures Status: Acute Hospital Course & Plan: Pain control and pulmonary toilet 01/27/18: Patient has expected chest wall pain with her rib fractures. Attempt to change pain medications and nausea medication for better efficacy. Mobilize more and attempt to remove baker catheter. 01/29/18: Little change from yest. Only 35 cc chest tube drainage in past 24 hrs. so chest tube was removed by me, F/U CXR shows no pneumothorax. Still needing supplemental O2 (on RA, O2 satn. dropped to 85%). Will continue NC O2 for now but repeat trials without it today; also, will get pt. up out of bed. Adding Miralax and Milk of Mag. for constipation. Possible D/C home ana. 01/30/2018 persistent chest wall pain, parish with deep resp. Cont pulm toilet and close observation. Not ready to DC home yet. 01/31/2018 Pt feels better without narcotics overnight, feels the meds made her sick. minimal chest wall pain this am. will check RA sat as pt lives >1000' higher than [place], may need home O2. (3) Nausea & vomiting Status: Acute Hospital Course & Plan: 01/27/18: Attempt to change pain medication to see if that helps her at all with her nausea. Also, add phenergan because the zofran does not appear helpful 01/30/2018 bilious emesis persists. ABD exam benign. will check LFTs, CBC and Lipase. will adjust pain meds and PO cathartics. cont close observation. 01/31/2018 no further NV. abd benign. remains constipated. optimal to have BM prior to DC. Cont [place] cathartics. Departure Weight (Pounds): 160 Result Diagram: 01/30/18 1517 01/30/18 1517 Condition: Improved Discharge: Home Discharge Code Status: Full Code Time Spent: > 30 min Discharge Instructions Home Meds Reported Medications Melatonin (Melatonin) 5 Mg Tab.ir.er 01/25/18 Multivitamin (MULTI-VITAMIN DAILY) 1 Each Tablet, 1 EACH PO 01/25/18 Venous Thromboembolism VTE Risk Physician Assess for VTE Risk: Yes Patient's VTE Risk: Low VTE Diagnostic Test 2 Days Prior to Admit: No Antithrombotics Is Pt On Any Antithrombotics?: No Prophylaxis Tx Contraindicated Pharmacological Contraindicati: Pt/Family Refused Mechanical Contraindications: Pt/Family Refused Problem Qualifiers (1) Rib fractures: Encounter type: subsequent encounter Rib fracture type: multiple ribs Fracture type: closed Laterality: right (2) Nausea & vomiting: Vomiting type: bilious vomiting Qualified Codes: R11.14 - Bilious vomiting BUDDY MONTERO MD Jan 31, 2018 09:06
[2018-01-31] MEDS: APAP/HYDROCODONE 325/5 TAB PO PRN (11:24)
== END 2018-01-31 11:50 | disposition home or self-care (01) | DRG 200 ==
LOC: ER 11:17 → MED 15:24
PROVIDERS: ADMIT Surgery; ATTEND Surgery
PROC: 0W9930Z Drainage of Right Pleural Cavity with Drainage Device, Percutaneous Approach (ICD-10-PCS; principal; 2018-01-25)
DX: S27.2XXA Traumatic hemopneumothorax, initial encounter (principal); S22.41XA Multiple fractures of ribs, right side, initial encounter for closed fracture; W55.12XA Struck by horse, initial encounter; Y92.79 Other farm location as the place of occurrence of the external cause; R11.14 Bilious vomiting; K59.00 Constipation, unspecified; Z88.2 Allergy status to sulfonamides; Z88.6 Allergy status to analgesic agent
CPT/HCPCS: 36415; 71045; 71046; 71260; 82040; 82247; 82310; 82374; 82435; 82565; 82947; 83690; 84075; 84132; 84155; 84295; 84450; 84460; 84520; 85007; 85025; 85027; 85610; 85730; 86850; 86900; 86901; 94010; 97161; 97166; 99151; 99152; A7048; C1758; J1885; J2060; J2270; J2405; J2550; J2704; J3490; J7030; Q9967

== ENCOUNTER → 2018-01-25 | Outpatient (CLI) | payer MEDICARE, BC ==
[~2018-01-25] MED LIST: MELA5TAB21; MULT1TAB54 PO
[2018-01-26 12:07] VITALS: BMI 24.3
== END ==
LOC: AMB 09:54
PROVIDERS: ATTEND Nurse Practitioner
DX: R07.81 Pleurodynia (principal); R06.00 Dyspnea, unspecified; W55.19XA Other contact with horse, initial encounter
CPT/HCPCS: A0425; A0427

== ENCOUNTER 2018-01-28 07:18 | Outpatient (RCR) | payer MEDICARE, BC ==
[2018-01-26 12:07] VITALS: BMI 24.3
--- NOTE | 2018-02-01 10:44 | Transitional Care Management ---
Assessment Visit Type: Telephone Visit (02/01 [place]) Cardiac: WNL Respiratory: WNL Except Respiratory Comment: 02/01 Using O2 at 3L /. Ribs hurt if she coughs or takes a really deep breath but feels as though it is improving. GI: Nutrition: WNL Wt Gain/Loss: WNL Constipation?: No Musculoskeletal, Exercise: WNL Except Musculoskeletal, Excercise Com: 01/31Moving around her home and doing some things but very restricted with the fx ribs Mobility/Falls: WNL Integumentary: WNL Feeling of Well Being: WNL Socialization: WNL Pain/Management: WNL Pain/Management Comment: 01/31 using Alieve every 6 hours for rib pain Scheduled Follow-Up with Provi: Yes (02/01 calling the [facility] and hopes to get in to see someone for her follow up and possibly another before they leave to [place]) Following Discharge Instructio: Yes TCM Discharge Criteria Transitional Care Comment: 01/27 review need to f/u with MD after dc. will refer to [facility] or give her dc summary/records if returning to [place]. will need stitches removed and f/u. no flying. Reinforce CDB; has IS in her hand. Suggest log rolling. Gave info on obtaining walker if desired at dc 02/01 Feels like she is improving and feels more comfortable in her home. Slept well last PM and has had a good breakfast. Eating 6 small meals and takes her pain med at that time. Using a pillow to hold aroung her to stablilize her chest for coughing or ddeep breath. ARPIT LOPEZ Feb 01, 2018 10:44
[2018-02-06] MEDS ORDERED: NAPR220C12 PO (16:07)
[2018-02-12] MEDS ORDERED: LACT1CAP6 PO (11:38)
[2018-02-12] MEDS ORDERED: collagen PO (11:38)
[2018-02-12] MEDS ORDERED: tumeric PO (11:38)
[2018-02-12] MEDS ORDERED: GLUC-135 PO (11:38)
[2018-02-14] MEDS ORDERED: RIVA20TA PO (06:51)
[2018-02-14] MEDS ORDERED: RIVA15TA PO (06:51)
--- NOTE | 2018-02-16 13:51 | Transitional Care Management ---
Assessment Visit Type: Telephone Visit Spoke with: Muna Cardiac: WNL Respiratory: WNL Except Respiratory Comment: 02/01 Using O2 at 3L /. Ribs hurt if she coughs or takes a really deep breath but feels as though it is improving. 02/15 Wearing O2 all the time, using IS. She denies SOB. GI: Nutrition: WNL Wt Gain/Loss: WNL Constipation?: No Musculoskeletal, Exercise: WNL Except Musculoskeletal, Excercise Com: 01/31Moving around her home and doing some things but very restricted with the fx ribs 02/15 Gets out and walks a few times a day, active in the home. Mobility/Falls: WNL Integumentary: WNL Feeling of Well Being: WNL Socialization: WNL Pain/Management: WNL Scheduled Follow-Up with Provi: Yes (02/15 F/U with May on 02/20) Following Discharge Instructio: Yes TCM Discharge Criteria Transitional Care Comment: 01/27 review need to f/u with MD after dc. will refer to May local or give her dc summary/records if returning to [place]. will need stitches removed and f/u. no flying. Reinforce CDB; has IS in her hand. Suggest log rolling. Gave info on obtaining walker if desired at dc 02/01 Feels like she is improving and feels more comfortable in her home. Slept well last PM and has had a good breakfast. Eating 6 small meals and takes her pain med at that time. Using a pillow to hold around her to stablilize her chest for coughing or deep breath. 02/15 She is feeling strong, walking a few times a day, using IS. I reviewed her discharge instructions. ROB STEVENS Feb 16, 2018 13:51
--- NOTE | 2018-02-28 09:47 | Transitional Care Management ---
Assessment Visit Type: Telephone Visit Spoke with: Muna Cardiac: WNL Respiratory: WNL Except Respiratory Comment: 02/01 Using O2 at 3L /. Ribs hurt if she coughs or takes a really deep breath but feels as though it is improving. 02/15 Wearing O2 all the time, using IS. She denies SOB. 02/28 No longer requiring O2, rib pain with IS and coughing. GI: Nutrition: WNL Wt Gain/Loss: WNL Constipation?: No : WNL Musculoskeletal, Exercise: WNL Except Musculoskeletal, Excercise Com: 01/31Moving around her home and doing some things but very restricted with the fx ribs 02/15 Gets out and walks a few times a day, active in the home. 02/28 She is getting out and walking, seeing a therapeutic message therapist. Mobility/Falls: WNL Integumentary: WNL Feeling of Well Being: WNL Socialization: WNL Pain/Management: WNL Scheduled Follow-Up with Provi: Yes (02/28 she has made appts with her local Dr' s at home.) Following Discharge Instructio: Yes TCM Discharge Criteria Medication Knowledge: 02/28 reviewed xarelto Transitional Care Comment: 01/27 review need to f/u with MD after dc. will refer to [facility] or give her dc summary/records if returning to [place]. will need stitches removed and f/u. no flying. Reinforce CDB; has IS in her hand. Suggest log rolling. Gave info on obtaining walker if desired at dc 02/01 Feels like she is improving and feels more comfortable in her home. Slept well last PM and has had a good breakfast. Eating 6 small meals and takes her pain med at that time. Using a pillow to hold around her to stablilize her chest for coughing or deep breath. 02/15 She is feeling strong, walking a few times a day, using IS. I reviewed her discharge instructions. 02/28 She is doing well on RA, knows her medications, walking, seeing a therapeutic message therapist. Her plan is to travel home next week. we discussed the need for breaks, and walking during the trip. One more follow up call to ensure the trip went well, and MD follow up are in place. ROB STEVENS Feb 28, 2018 09:47
--- NOTE | 2018-03-04 11:24 | Transitional Care Management ---
Assessment Visit Type: Telephone Visit Spoke with: Mello Cardiac: WNL Respiratory: WNL Except Respiratory Comment: 02/01 Using O2 at 3L /. Ribs hurt if she coughs or takes a really deep breath but feels as though it is improving. 02/15 Wearing O2 all the time, using IS. She denies SOB. 02/28 No longer requiring O2, rib pain with IS and coughing. GI: Nutrition: WNL Wt Gain/Loss: WNL Constipation?: No : WNL Musculoskeletal, Exercise: WNL Except Musculoskeletal, Excercise Com: 01/31Moving around her home and doing some things but very restricted with the fx ribs 02/15 Gets out and walks a few times a day, active in the home. 02/28 She is getting out and walking, seeing a therapeutic message therapist. Mobility/Falls: WNL Integumentary: WNL Feeling of Well Being: WNL Except Feeling of Well Being Comment: 03/04 She is very anxious, afraid the fluid is collecting in her lung again. She has followed up with Dr Schmidt, chest xrays continue to improve. Socialization: WNL Pain/Management: WNL Except Pain/Management Comment: 03/04 Increased lateral chest pain. Scheduled Follow-Up with Provi: Yes (02/28 she has made appts with her local Dr' s at home.) Following Discharge Instructio: Yes TCM Discharge Criteria Medication Knowledge: 02/28 reviewed xarelto Transitional Care Comment: 01/27 review need to f/u with MD after dc. will refer to May santos or give her dc summary/records if returning to [place]. will need stitches removed and f/u. no flying. Reinforce CDB; has IS in her hand. Suggest log rolling. Gave info on obtaining walker if desired at dc 02/01 Feels like she is improving and feels more comfortable in her home. Slept well last PM and has had a good breakfast. Eating 6 small meals and takes her pain med at that time. Using a pillow to hold around her to stablilize her chest for coughing or deep breath. 02/15 She is feeling strong, walking a few times a day, using IS. I reviewed her discharge instructions. 02/28 She is doing well on RA, knows her medications, walking, seeing a therapeutic message therapist. Her plan is to travel home next week. we discussed the need for breaks, and walking during the trip. One more follow up call to ensure the trip went well, and MD follow up are in place. 03/04 I spoke with Mello, her . Muna is very anxious, fearful that fluid is collecting in her lung again. They have seen Dr Schmidt, and chest xrays continue to improve. They leave tomorrow, to drive back to [place]. One more call once they have gotten home, then discharge from the program. Copies to: MELLO SCHMIDT MD, MICHAEL K Mar 04, 2018 11:23
--- NOTE | 2018-03-13 13:07 | Transitional Care Management ---
Assessment Visit Type: Telephone Visit Spoke with: Giana Cardiac: WNL Respiratory: WNL Except Respiratory Comment: 02/01 Using O2 at 3L /. Ribs hurt if she coughs or takes a really deep breath but feels as though it is improving. 02/15 Wearing O2 all the time, using IS. She denies SOB. 02/28 No longer requiring O2, rib pain with IS and coughing. 03/13 Minimal pain with deep breaths. GI: Nutrition: WNL Wt Gain/Loss: WNL Constipation?: No : WNL Musculoskeletal, Exercise: WNL Except Musculoskeletal, Excercise Com: 01/31Moving around her home and doing some things but very restricted with the fx ribs 02/15 Gets out and walks a few times a day, active in the home. 02/28 She is getting out and walking, seeing a therapeutic message therapist. Mobility/Falls: WNL Integumentary: WNL Feeling of Well Being: WNL Except Feeling of Well Being Comment: 03/04 She is very anxious, afraid the fluid is collecting in her lung again. She has followed up with Dr Olvera, chest xrays continue to improve. 03/13 She is back in [place], and it is comforting to be home. Socialization: WNL Pain/Management: WNL Except Pain/Management Comment: 03/04 Increased lateral chest pain. 03/13 Minimal pain. Scheduled Follow-Up with Provi: Yes (03/13 Saw her sheriffs officer yesterday.) Following Discharge Instructio: Yes TCM Discharge Criteria Medication Knowledge: 02/28 reviewed xarelto 03/13 She has switched to xarelto 20mg QD Transitional Care Comment: 01/27 review need to f/u with MD after dc. will refer to May santos or give her dc summary/records if returning to [place]. will need stitches removed and f/u. no flying. Reinforce CDB; has IS in her hand. Suggest log rolling. Gave info on obtaining walker if desired at dc 02/01 Feels like she is improving and feels more comfortable in her home. Slept well last PM and has had a good breakfast. Eating 6 small meals and takes her pain med at that time. Using a pillow to hold around her to stablilize her chest for coughing or deep breath. 7/27 She is feeling strong, walking a few times a day, using IS. I reviewed her discharge instructions. 02/28 She is doing well on RA, knows her medications, walking, seeing a therapeutic message therapist. Her plan is to travel home next week. we discussed the need for breaks, and walking during the trip. One more follow up call to ensure the trip went well, and MD follow up are in place. 03/04 I spoke with Ki, her . Muna is very anxious, fearful that fluid is collecting in her lung again. They have seen Dr Olvera, and chest xrays continue to improve. They leave tomorrow, to drive back to [place]. One more call once they have gotten home, then discharge from the program. 03/13 Her trip home was uneventful. She has seen her PCP and [facility]. I discussed discharge from the program, which she agrees with. ROB STEVENS Mar 13, 2018 13:07
== END 2018-03-13 13:51 | disposition home or self-care (01) ==
LOC: TCM 07:18
PROVIDERS: ATTEND Nurse Practitioner
DX: Z02.9 Encounter for administrative examinations, unspecified (principal)

== ENCOUNTER 2018-02-06 12:35 | Inpatient (IN) | payer MEDICARE, BC ==
[2018-02-06] VITALS (19 sets, daily range): BP systolic 98–124; BP diastolic 50–76
[~2018-02-06] VITALS: Ht 172.7 cm; Wt 68.5 kg
[2018-02-06] MEDS ORDERED: NS(*) 0.9% 1000 ML BAG 1,000 ML IV ONE ×2 (13:03→16:20)
[2018-02-06] MEDS ORDERED: HYDROmorphone* 1 MG/ML 1 MG/ML ML IVP ONE ×2 (13:05→17:00)
[2018-02-06] MEDS ORDERED: ONDANSETRON 4 MG/2 ML VIAL IVP ONE (13:05)
--- NOTE | 2018-02-06 13:08 | ER Report ---
History and Physical Time Seen By MD: 12:50 Hx. of Stated Complaint: PATIENT IS REPORTING SHORTNESS OF BREATH AND A DISTENDED ABDOMEN. SHE WAS RELEASED FROM THE HOSPITAL LAST WEEK FOR A TRAUMA. HPI/ROS CHIEF COMPLAINT: Abdominal pain HISTORY OF PRESENT ILLNESS: Patient is 67-year-old female seen here recently after a traumatic injury where she was knocked down by again stepped on by worsens resulting in 7 posterior and anterior rib fractures no flail chest chest tube was placed secondary to a hemopneumothorax denies loss of consciousness was sent admitted to the hospital for 7 day stay pain medication subsequently discharged however in the last couple of days she's had frequent episodes of abdominal pain and nausea primarily in the morning not associated with pain medication dosages she is no longer taking it and the pain is localized into the epigastrium area comes and goes as a dull aching sensation of feeling of fullness history shows like she is a little bloated in her pants feel tighter than normal. Patient denies chest pain other than her baseline rib pain which is secondary to the fractures. This is unchanged from baseline. Patient denies current nausea vomiting diarrhea fever chills REVIEW OF SYSTEMS: Respiratory: No cough, no dyspnea. Cardiovascular: No chest pain, no palpitations. Gastrointestinal: Abdominal pain and vomiting Musculoskeletal: No back pain. Remainder of the 14 system rev: Yes Allergies: Coded Allergies: Sulfa (Sulfonamide Antibiotics) (Verified Allergy, Intermediate, 01/25/18) aspirin (Verified Allergy, Intermediate, 01/25/18) Home Meds Reported Medications Melatonin (Melatonin) 5 Mg Tab.ir.er 01/25/18 Multivitamin (MULTI-VITAMIN DAILY) 1 Each Tablet, 1 EACH PO 01/25/18 Reviewed Nurses Notes: Yes Old Medical Records Reviewed: Yes Hx Smoking: No Smoking Status: Never Smoker Exposure to Second Hand Smoke?: No Hx Substance Use Disorder: No Hx Alcohol Use: Yes Constitutional Vital Sign - Last 24 Hours 02/06/18 02/06/18 02/06/18 02/06/18 12:35 12:39 12:42 12:46 Temp 98.0 Pulse ??? Resp 24 B/P (MAP) 136/80 136/80 (98) Pulse Ox 87 O2 Delivery Nasal Cannula O2 Flow Rate 2.0 02/06/18 02/06/18 02/06/18 02/06/18 13:05 13:20 14:16 14:25 Pulse 77 69 B/P (MAP) 110/56 (74) 107/56 (73) Pulse Ox 97 93 02/06/18 02/06/18 02/06/18 02/06/18 14:30 15:00 15:05 15:10 Pulse 60 76 B/P (MAP) 99/53 (68) 119/74 (89) Pulse Ox 95 96 02/06/18 15:22 B/P (MAP) 142/73 (96) Intake and Output 02/06/18 02/06/18 02/07/18 15:00 23:00 07:00 Intake Total 1000 ml Balance 1000 ml Physical Exam General Appearance: [The patient is alert, has no immediate need for airway protection and no current signs of toxicity.] [ ] Eyes: Pupils equal and round no injection. Respiratory: Mild slightly decreased lung sounds in the right lung base. Tender to palpation at the rib line ribs 7 through 10. Cardiac: regular rate and rhythm [ ] Gastrointestinal: Tenderness to palpation in the epigastrium a palpable aorta approximately 3-4 cm on palpation normal bowel sounds otherwise unremarkable exam Musculoskeletal: Neck: Neck is supple and non tender. Extremities have full range of motion and are non tender. Skin: No rashes or lesions. [ ] DIFFERENTIAL DIAGNOSIS: After history and physical exam differential diagnosis was considered for aortic dissection aortic aneurysm abdominal trauma referred pain from chest thoracic trauma perfect bowel small bowel obstruction Medical Decision Making Data Points Result Diagram: 02/06/18 1318 02/06/18 1318 Laboratory Hematology Test 02/06/18 13:18 02/06/18 13:25 Red Blood Count 3.64 M/uL (4.17-5.56) Mean Corpuscular Volume 96.4 fL (80.0-96.0) Mean Corpuscular Hemoglobin 32.7 pg (26.0-33.0) Mean Corpuscular Hemoglobin Concent 33.9 g/dL (32.0-36.0) Red Cell Distribution Width 12.9 % (11.5-14.5) Mean Platelet Volume 8.7 fL (7.2-11.1) Neutrophils (%) (Auto) 76.7 % (39.4-72.5) Lymphocytes (%) (Auto) 12.2 % (17.6-49.6) Monocytes (%) (Auto) 9.1 % (4.1-12.4) Eosinophils (%) (Auto) 1.7 % (0.4-6.7) Basophils (%) (Auto) 0.3 % (0.3-1.4) Nucleated RBC Relative Count (auto) 0.0 /100WBC Neutrophils # (Auto) 9.6 K/uL (2.0-7.4) Lymphocytes # (Auto) 1.5 K/uL (1.3-3.6) Monocytes # (Auto) 1.1 K/uL (0.3-1.0) Eosinophils # (Auto) 0.2 K/uL (0.0-0.5) Basophils # (Auto) 0.0 K/uL (0.0-0.1) Nucleated RBC Absolute Count (auto) 0.00 K/uL Prothrombin Time 14.1 seconds (12.0-14.4) Prothromb Time International Ratio 1.09 Activated Partial Thromboplast Time 26 seconds (23-35) Sodium Level 142 mmol/L (137-145) Potassium Level 4.2 mmol/L (3.5-5.0) Chloride Level 103 mmol/L (98-107) Carbon Dioxide Level 28 mmol/L (22-31) Blood Urea Nitrogen 18 mg/dl (7-18) Creatinine 0.90 mg/dl (0.52-1.04) Glomerular Filtration Rate Calc > 60.0 Random Glucose 102 mg/dl (75-110) Calcium Level 9.2 mg/dl (8.4-10.2) Total Bilirubin 0.5 mg/dl (0.2-1.3) Aspartate Amino Transf (AST/SGOT) 35 U/L (0-35) Alanine Aminotransferase (ALT/SGPT) 32 U/L (0-56) Alkaline Phosphatase 96 U/L (0-126) Total Protein 6.5 g/dl (6.3-8.2) Albumin 3.8 g/dl (3.5-5.0) Lipase 46 U/L (23-300) Urine Color Yellow Urine Clarity Clear Urine pH 6.0 pH (4.8-9.5) Urine Specific [place] 1.020 Urine Protein Negative mg/dL (NEGATIVE) Urine Glucose (UA) Negative mg/dL (NEGATIVE) Urine Ketones Negative mg/dL (NEGATIVE) Urine Blood Negative (NEGATIVE) Urine Nitrite Negative (NEGATIVE) Urine Bilirubin Negative (NEGATIVE) Urine Urobilinogen 0.2 mg/dL (0.2-1.9) Urine Leukocyte Esterase Negative (NEGATIVE) Urine RBC 0-2 /HPF (0-2/HPF) Urine WBC 1-4 /HPF (0-5/HPF) Urine Squamous Epithelial Cells Rare /LPF (</=FEW) Urine Transitional Epithelial Cells /LPF (NONE-FEW) Urine Bacteria Negative /HPF (NONE-FEW) Urine Mucus Few /HPF (NONE-FEW) Chemistry Test 02/06/18 13:18 02/06/18 13:25 White Blood Count 12.5 k/uL (4.5-11.0) Red Blood Count 3.64 M/uL (4.17-5.56) Hemoglobin 11.9 g/dL (12.0-16.0) Hematocrit 35.1 % (34.0-47.0) Mean Corpuscular Volume 96.4 fL (80.0-96.0) Mean Corpuscular Hemoglobin 32.7 pg (26.0-33.0) Mean Corpuscular Hemoglobin Concent 33.9 g/dL (32.0-36.0) Red Cell Distribution Width 12.9 % (11.5-14.5) Platelet Count 226 K/uL (150-450) Mean Platelet Volume 8.7 fL (7.2-11.1) Neutrophils (%) (Auto) 76.7 % (39.4-72.5) Lymphocytes (%) (Auto) 12.2 % (17.6-49.6) Monocytes (%) (Auto) 9.1 % (4.1-12.4) Eosinophils (%) (Auto) 1.7 % (0.4-6.7) Basophils (%) (Auto) 0.3 % (0.3-1.4) Nucleated RBC Relative Count (auto) 0.0 /100WBC Neutrophils # (Auto) 9.6 K/uL (2.0-7.4) Lymphocytes # (Auto) 1.5 K/uL (1.3-3.6) Monocytes # (Auto) 1.1 K/uL (0.3-1.0) Eosinophils # (Auto) 0.2 K/uL (0.0-0.5) Basophils # (Auto) 0.0 K/uL (0.0-0.1) Nucleated RBC Absolute Count (auto) 0.00 K/uL Prothrombin Time 14.1 seconds (12.0-14.4) Prothromb Time International Ratio 1.09 Activated Partial Thromboplast Time 26 seconds (23-35) Glomerular Filtration Rate Calc > 60.0 Calcium Level 9.2 mg/dl (8.4-10.2) Total Bilirubin 0.5 mg/dl (0.2-1.3) Aspartate Amino Transf (AST/SGOT) 35 U/L (0-35) Alanine Aminotransferase (ALT/SGPT) 32 U/L (0-56) Alkaline Phosphatase 96 U/L (0-126) Total Protein 6.5 g/dl (6.3-8.2) Albumin 3.8 g/dl (3.5-5.0) Lipase 46 U/L (23-300) Urine Color Yellow Urine Clarity Clear Urine pH 6.0 pH (4.8-9.5) Urine Specific [place] 1.020 Urine Protein Negative mg/dL (NEGATIVE) Urine Glucose (UA) Negative mg/dL (NEGATIVE) Urine Ketones Negative mg/dL (NEGATIVE) Urine Blood Negative (NEGATIVE) Urine Nitrite Negative (NEGATIVE) Urine Bilirubin Negative (NEGATIVE) Urine Urobilinogen 0.2 mg/dL (0.2-1.9) Urine Leukocyte Esterase Negative (NEGATIVE) Urine RBC 0-2 /HPF (0-2/HPF) Urine WBC 1-4 /HPF (0-5/HPF) Urine Squamous Epithelial Cells Rare /LPF (</=FEW) Urine Transitional Epithelial Cells /LPF (NONE-FEW) Urine Bacteria Negative /HPF (NONE-FEW) Urine Mucus Few /HPF (NONE-FEW) Coagulation Test 02/06/18 13:18 Prothrombin Time 14.1 seconds Prothromb Time International Ratio 1.09 Activated Partial Thromboplast Time 26 seconds Urinalysis Test 02/06/18 13:25 Urine Color Yellow Urine Clarity Clear Urine pH 6.0 pH (4.8-9.5) Urine Specific [place] 1.020 Urine Protein Negative mg/dL (NEGATIVE) Urine Glucose (UA) Negative mg/dL (NEGATIVE) Urine Ketones Negative mg/dL (NEGATIVE) Urine Blood Negative (NEGATIVE) Urine Nitrite Negative (NEGATIVE) Urine Bilirubin Negative (NEGATIVE) Urine Urobilinogen 0.2 mg/dL (0.2-1.9) Urine Leukocyte Esterase Negative (NEGATIVE) Urine RBC 0-2 /HPF (0-2/HPF) Urine WBC 1-4 /HPF (0-5/HPF) Urine Squamous Epithelial Cells Rare /LPF (</=FEW) Urine Transitional Epithelial Cells /LPF (NONE-FEW) Urine Bacteria Negative /HPF (NONE-FEW) Urine Mucus Few /HPF (NONE-FEW) ED Course/Re-evaluation ED Course ED clinical course medical decision-making 67-year-old female history of trauma stampeded by horses she had multiple rib fractures discharged after 7 a hospital stay returns or shortness breath abdominal pain CT demonstrates a significant hemothorax on the right side 70% of the lung field obliterated 20% with aeration also demonstrating bilateral PE pulmonary emboli in the left lower lobe chest tube was placed by general surgery under conscious sedation over a liter of blood has been evacuated from the chest patient tolerated procedure well will be admitted under the general surgeon for hemopneumothorax Decision to Disposition Date: Feb 06, 2018 Decision to Disposition Time: 15:49 Depart Departure Latest Vital Signs Vital Signs Date Time Temp Pulse Resp B/P (MAP) Pulse Ox O2 Delivery O2 Flow Rate FiO2 02/06/18 15:22 142/73 (96) 02/06/18 15:10 76 96 02/06/18 12:46 2.0 02/06/18 12:39 98.0 24 Nasal Cannula Impression: Primary Impression: Hemopneumothorax on right Condition: Improved Disposition: Admitted from ER FALGUNI BOOKER MD Feb 06, 2018 13:08
[2018-02-06 13:32] LABS: PLATELET COUNT, AUTOMATED 226 K/uL (150-450)
[2018-02-06] MEDS ORDERED: IOPAMIDOL 76% 75 ML INFUS BTL 75 ML ONE (13:35)
[2018-02-06 13:42] LABS: INR 1.09
[2018-02-06] MEDS ORDERED: PROMETHAZINE 25 MG/ML 1 ML AMP IVP ONE (13:45)
--- NOTE | 2018-02-06 15:11 | RADIOLOGY IMAGING REPORT ---
FACILITY: PATIENT NAME: Muna Butler : 1950 MR: [id number] V: [id number] EXAM DATE: ORDERING PHYSICIAN: FALGUNI BOOKER TECHNOLOGIST: Location: [facility] [place] Patient: Muna Butler : 1950 Visit/Account:[id number] Date of Sevice: 02/06/2018 Chest 2 views: HISTORY: Chest pain. COMPARISON: 01/30/2018 FINDINGS: Frontal and lateral chest: Heart size is within normal limits. Since the prior study, [place] ent has developed opacity in the right hemithorax which is likely combination of a large pleural effu supa and underlying atelectasis and/or infiltrate. Left lung is clear. There is no pneumothorax. P ulmonary vasculature is normal. Right side rib fractures noted. IMPRESSION: 1. Interval development of a large right pleural effusion and underlying atelectasis and/or infiltra te. 2. Known right-sided rib fractures. 3. Left lung is clear. Report Dictated By: Elizabeth Ramirez MD at 02/06/2018 3:04 PM Report E-Signed By: Elizabeth Ramirez MD at 02/06/2018 3:07 PM WSN:[email or web address]
--- NOTE | 2018-02-06 15:12 | RADIOLOGY IMAGING REPORT ---
FACILITY: [facility] - [place] PATIENT NAME: Muna Butler : 1950 MR: [id number] V: [id number] EXAM DATE: ORDERING PHYSICIAN: FALGUNI BOOKER TECHNOLOGIST: [place] [facility] [place] Muna [place] : 1950 Visit/Account:[id number] Date of Sevice: 02/06/2018 CHEST/AB/PELV W/CONTRAST EXAMINATION: CT chest with IV contrast Additional Pertinent history: Recent trauma. TECHNIQUE: Spiral scan was obtained through the chest /abdomen/pelvis during injection of nonionic iodinated intravenous contrast. Contrast: 75 mL of Isovue-370 -. Reconstructed sagittal and coronal scans. One of the following dose optimization techniques was utilized in the performance of this exam: Autom ated exposure control; adjustment of the mA and/or kV according to the patient's size; or use of an i terative reconstruction technique. Specific details can be referenced in the facility's radiology C T exam operational policy. COMPARISON STUDIES: 01/25/2018. FINDINGS: Lungs / pleura: There is a significant right effusion extending from the lung base through the right apex. This has a maximal depth of approximately 7 cm. There are distinct areas of intermixed increa sed density within the fluid in the inferior posterior aspect of the lung compatible with clotted blo od. There is complete collapse of the right lower lobe and right middle lobe sparing only a portion of th e superior segment. As a slight mediastinal shift the carmen shifted approximately 1.5 cm from midli ne. Left lung field is clear Mediastinum / shaye: Mild mediastinal shift from right to left. Heart / pericardium: No pericardial effusion. Intermixed Vessels: There are filling defects noted within the proximal segmental branches of the left lower tank g (images 49 through 61 series 2 which appear to represent pulmonary emboli. No obvious additional e mboli identified but this is not a formal pulmonary CTA. Musculoskeletal / Body wall: Reidentified are the fractures of the anterior second, third, fourth rib s,, anterolateral fifth and sixth ribs and lateral seventh seven and ninth ribs. Lymph node assessment: negative Lower neck: negative at established due date that cannot bear: : Liver / biliary: No liver laceration. No perihepatic fluid. Pancreas: negative Spleen: negative Adrenal glands: negative Kidneys / retroperitoneum: negative Pelvic structures: negative Bowel / peritoneum / mesenteries: No intra-abdominal fluid. No interloop fluid or bowel edema. Vessels: No dissection. Musculoskeletal / Body wall: Prominent superior endplate Schmorl node change involving the L1 and L2 vertebral bodies multiple thoracic vertebral bodies. Lymph node assessment: negative IMPRESSION: 1. Large pleural effusion (hemothorax) intervally developing since patient's discharge with nearly c omplete volume loss of the right lower lung sparing only the superior segment. Right middle lobe col lapse. Multiple rib fractures reidentified in the right chest 2. Mediastinal shift. No indication 3. There to be pulmonary emboli within the left lower lung. Since this was not a formal study would recommend a repeat CT scan of the chest with contrast after chest tubes have been placed and there i s better expansion of the right lung. Results were discussed with FALGUNI BOOKER at 02/06/2018 2:59 PM. Report Dictated By: Andrew Ordoñez MD at 02/06/2018 2:19 PM Report E-Signed By: Andrew Ordoñez MD at 02/06/2018 3:08 PM WSN:[email or web address]
[2018-02-06] MEDS ORDERED: PROPOFOL(*)1000 MG/100 ML VIAL 0 ML ONE (15:16)
[2018-02-06] MEDS ORDERED: PROPOFOL EMUL(*) 10MG/ML 20 ML 20 ML ONE (15:20)
[2018-02-06] MEDS ORDERED: HYDROmorphone PCA 6 MG/30 ML IV PRN (16:00)
[2018-02-06] MEDS ORDERED: FLUSH 10 ML SYR IVP PRN (16:00)
[2018-02-06] MEDS ORDERED: NALOXONE HCL 0.4 MG/ML VIAL IVP PRN (16:00)
[2018-02-06] MEDS ORDERED: ONDANSETRON 4 MG/2 ML VIAL IVP PRN (16:00)
[2018-02-06] MEDS ORDERED: NAPR220C12 PO (16:07)
--- NOTE | 2018-02-06 16:27 | RADIOLOGY IMAGING REPORT ---
FACILITY: [facility] PATIENT NAME: Muna Butler : 1950 MR: [id number] V: [id number] EXAM DATE: ORDERING PHYSICIAN: FALGUNI BOOKER TECHNOLOGIST: Location: [facility] [place] Patient: Muna Butler : 1950 Visit/Account:[id number] Date of Sevice: 02/06/2018 CHEST SINGLE AP Additional pertinent History: Chest tube placement COMPARISON STUDIES: 2:10 PM FINDINGS: : Right-sided chest tube entering the 8-9 rib interspace with the tip projecting in the superior aspe ct of the right apex. Significant reduction in the degree of right effusion when compared to the pre vious examination. Atelectasis/volume loss seen in the right lower lung.. There is increased promin ence of the vascular structures in the left lung when compared to the earlier a.m. film IMPRESSION: 1. Placement of a right-sided chest tube with evacuation of a large portion of the previously seen a nd described right effusion. 2. Multiple right-sided rib fractures. 3. Vascular engorgement intervally developed in the left lung when compared to the prechest tube jose miguel m. This is likely due to differences in inspiratory effort. Report Dictated By: Andrew Ordoñez MD at 02/06/2018 4:15 PM Report E-Signed By: Andrew Ordoñez MD at 02/06/2018 4:24 PM WSN:[email or web address]
[2018-02-06] MEDS: ACETAMINOPHEN(*)1000 MG/100 ML 100 ML IVPB SCH ×2 (17:12→23:24)
--- NOTE | 2018-02-06 18:03 | Gen Surgery History & Physical ---
History of Present Illness Chief Complaint Shortness of breath, abdominal bloating, nausea History of Present Illness 67-year-old female is brought into the emergency department by EMS after being injured 12 days ago. She was in a stringer with several courses and was stepped on by a horse over her right chest. She was admitted to the hospital with a hemopneumothorax treated conservatively with a chest tube. She did well and was ultimately discharged 6 days later. She has been feeling fairly well after going home up until the last day or 2 when she is developed increasing abdominal distention with nausea and today had worsening shortness of breath. She reports even having walked three quarters of a mild this morning. In the ER , she was found to have a large fluid collection in her right chest. She's also been found to have pulmonary emboli on CT of her chest. I have been asked to come down and place a chest tube to drain the fluid from her chest. History Problems: (1) H/O tubal ligation Status: Chronic (2) Hx of tonsillectomy Status: Chronic (3) Hx of appendectomy Status: Chronic Home Meds Reported Medications Naproxen Sodium (ALEVE) 220 Mg Capsule, 220 MG PO TID, CAPSULE 02/06/18 Melatonin (Melatonin) 5 Mg Tab.ir.er 01/25/18 Multivitamin (MULTI-VITAMIN DAILY) 1 Each Tablet, 1 EACH PO 01/25/18 Allergies: Coded Allergies: Sulfa (Sulfonamide Antibiotics) (Verified Allergy, Intermediate, 01/25/18) aspirin (Verified Allergy, Intermediate, 01/25/18) Patient History: FH: brain cancer FATHER FHx: stroke MOTHER Review of Systems All Systems Reviewed/Normal: Yes, Except as Noted Cardiovascular: Chest Pain Respiratory: Shortness of Breath Gastrointestinal: Nausea, Abdominal Pain Exam General Appearance: Alert, Awake, No Acute Distress, Afebrile Neuro: No Gross deficits Eyes: PERRLA Cardiovascular: Regular Rate and Rhythm Respiratory: Other (decreased breath sounds on the right posteriorly especially near the base.) Extremities: Warm, Perfused Medical Decision Making Data Points Result Diagram: 02/06/18 1318 02/06/18 1318 Assessment and Plan Problems: (1) Hemothorax on right Status: Acute Assessment & Plan: 02/06/18: Patient has a recurrence of the hemothorax on the right. The blood that I evacuated through the chest tube was I'll dark and appeared old with no clots. It is possible it is simply bloodstained effusion as well. Chest tube was placed without any problems. 1.5 L of thin dark maroon fluid were evacuated and continue to drain after I left. She also has a new left -sided pulmonary embolism. I have consult of the hospitalist to help manage this. I do not think that there is any ongoing bleeding. She has a chest tube in place that we can monitor for this. Because of her pulmonary emboli, I recommend that we go ahead and start anticoagulation. I have discussed this with the hospitalist and he will start a heparin drip so that if there is any evidence of ongoing bleeding then it can be stopped and will wear off rapidly. We will admit her into the ICU to facilitate a heparin drip. Her vitals are stable. Her post chest tube placement x-ray revealed good placement of the chest tube and near total evacuation of her right chest of fluid without evidence of pneumothorax. We'll use PPI for GI prophylaxis. We'll keep the chest tube in place until output is minimal. (2) Pulmonary embolism on left Status: Acute Assessment & Plan: Heparin drip, when no signs of bleeding from chest then we' ll convert to longer acting anticoagulation which she will require for the next 3-6 months. Hospitalist consulted to help manage this. (3) Rib fractures Status: Acute Assessment & Plan: Pain control, Aggressive pulmonary toilet with incentive spirometer and deep breathing. (4) Nausea & vomiting Status: Acute Assessment & Plan: Possibly has an ileus related to her injury. We will make her nothing by mouth and treat her symptomatically with antiemetics and wait for return of bowel function. Condition Guarded Time Spent: < 30 min Venous Thromboembolism VTE Risk Physician Assess for VTE Risk: Yes Patient's VTE Risk: High VTE Diagnostic Test 2 Days Prior to Admit: Yes Antithrombotics Is Pt On Any Antithrombotics?: Yes Problem Qualifiers (1) Rib fractures: Encounter type: subsequent encounter Rib fracture type: multiple ribs Fracture type: closed Laterality: right Fracture healing: with routine healing Qualified Codes: S22.41XD - Multiple fractures of ribs, right side, subsequent encounter for fracture with routine healing (2) Nausea & vomiting: Vomiting type: unspecified Vomiting Intractability: non-intractable Qualified Codes: R11.2 - Nausea with vomiting, unspecified BRAYAN,CEZAR MD Feb 06, 2018 18:03
[2018-02-06] MEDS ORDERED: HEPARIN (PORC) 5000 UN/ML VIAL IVP ONE (18:30)
--- NOTE | 2018-02-06 18:30 | Hospitalist Consultation ---
History of Present Illness Requesting Physician Dr Olvera Reason for Consult Pulmonary Embolism Chief Complaint Dyspnea, abdominal fullness History of Present Illness Thank you for the consultation and allowing us to participate in this patients care. 67F originally seen 01.25 and dc 01.31.2018 after R chest trauma from being stepped on by horse. Had 7 R sided rib Fx and hemopneumothorax treated with chest tube. Was doing well at home and even walked 3/4 mile this am but had some dypnea and had noted increased abdominal discomfort. On presentation to ER CT noted to have R sided pulmonary effusion and filling defects of L lung which could be possible pulmonary emboli. Dr Olvera was asked to place chest tube with approx 1500cc thin maroon liquid draining. Hospitalist service asked to consult to assist in management of possible PE. Pt reports significant n/v with narcotics last admission as well as constipation. History Other Past Medical Hx Denies any significant medical Hx. Home Meds Reported Medications Naproxen Sodium (ALEVE) 220 Mg Capsule, 220 MG PO TID, CAPSULE 02/06/18 Melatonin (Melatonin) 5 Mg Tab.ir.er 01/25/18 Multivitamin (MULTI-VITAMIN DAILY) 1 Each Tablet, 1 EACH PO 01/25/18 Allergies: Coded Allergies: Sulfa (Sulfonamide Antibiotics) (Verified Allergy, Intermediate, 01/25/18) aspirin (Verified Allergy, Intermediate, 01/25/18) Patient History: FH: brain cancer FATHER FHx: stroke MOTHER Hx Smoking: No Smoking Status: Never Smoker Exposure to Second Hand Smoke?: No Hx Alcohol Use: Yes Alcohol Use: Occassional Hx Substance Use Disorder: No Review of Systems All Systems Reviewed/Normal: Yes, Except as Noted (abdominal fullness, R sided pain at CT site) Constitutional: No Fever, No Weight Loss Cardiovascular: Chest Pain (CT site), No Palpitations, No Orthostatic Hypotension Respiratory: Shortness of Breath, No Cough, No Wheezing Gastrointestinal: No Nausea, No Vomiting Exam Vital Signs Vital Signs Date Time Temp Pulse Resp B/P (MAP) Pulse Ox O2 Delivery O2 Flow Rate FiO2 02/06/18 17:32 77 02/06/18 16:50 99.8 16 121/68 (85) 92 Nasal Cannula 4.0 General Appearance: Alert, Awake, No Acute Distress, Afebrile Neuro: No Gross deficits Eyes: PERRLA ENT: Normal Neck: No Masses Cardiovascular: Normal Rhythm & Peripheral Pulses Respiratory: No Respiratory Distress (shallow breaths 2/2 pain), Clear to Auscultation Chest: No Masses GI: Abd Soft and Non-Tender Lymph: No Adenopathy Musculoskeletal: No Weakness/Pain Extremities: Soft and Non Tender, Warm, Pulses, Perfused, No Edema Integumentary: Skin Intact without Lesion / Mass Psych: Alert & Oriented X3, Appropriate Mood & Affect Medical Decision Making Data Points Result Diagram: 02/06/18 1318 02/06/18 1318 Assessment and Plan Problems: (1) Pulmonary embolism on left Status: Acute Assessment & Plan: Imaging with CT not ideal, given high risk of complications with hemothorax would recommend CTA chest to evaluate possible PE of L lung. Trauma to R chest is only risk factor, denies any LE edema. Begin heparin gtt and will plan on CTA of chest before committing pt to detention anticoagulation. Pain management per primary. (2) Hemothorax on right Status: Acute Assessment & Plan: CT in place on R, draining thin maroon liquid. Per surgery, pain management per surgery. (3) Nausea & vomiting Status: Acute Assessment & Plan: Will use antiemetics and defer to surgery given their concern for possible ileus. Venous Thromboembolism Antithrombotics Is Pt On Any Antithrombotics?: Yes Exam Sepsis Risk: No Definite Risk Problem Qualifiers (1) Nausea & vomiting: Vomiting type: unspecified Vomiting Intractability: non-intractable Qualified Codes: R11.2 - Nausea with vomiting, unspecified MICHEL RIOS DO Feb 06, 2018 18:30
[2018-02-06] MEDS: HEPARIN* SOD/D5W 25000 U/500ML 500 ML IV SCH (19:32)
[2018-02-06] MEDS: NS(*) 0.9% 1000 ML BAG 1,000 ML IV PRN (23:24)
[2018-02-07] VITALS (20 sets, daily range): BP systolic 88–133; BP diastolic 49–75; Ht 172.7 cm; Wt 68.5 kg
[2018-02-07] MEDS: ACETAMINOPHEN(*)1000 MG/100 ML 100 ML IVPB SCH ×3 (05:28→18:28)
[2018-02-07 06:10] LABS: PLATELET COUNT, AUTOMATED 188 K/uL (150-450)
--- NOTE | 2018-02-07 06:29 | RADIOLOGY IMAGING REPORT ---
FAC[place]: [facility] [place]IENT NAME: Muna Butler : 1950 MR: [id number] V: [id number] EXAM DATE: ORDERING PHYSICIAN: MELLO SCHMIDT TECHNOLOGIST: Location: [facility] [place] Patient: Muna Butler : 1950 Visit/Account:[id number] Date of Sevice: 02/07/2018 CHEST SINGLE AP COMPARISONS: Single view chest dated February 06, 2018 ADDITIONAL PERTINENT HISTORY: Right hemothorax and chest tube FINDINGS: Cardiomediastinal silhouette: Negative. Pulmonary vasculature: Negative. Lung segura: Patchy areas of increased density at the right lung base, stable from previous exam. Pl eural spaces: Moderate right-sided pleural fluid collection. Persistent placement of a right apical c hest tube. Osseous structures: Negative. Surrounding soft tissues: Negative. IMPRESSION: No significant change since previous exam. Report Dictated By: Tadeo Conrad MD at 02/07/2018 6:25 AM Report E-Signed By: Tadeo Conrad MD at 02/07/2018 6:26 AM WSN:[id number]
--- NOTE | 2018-02-07 06:34 | General Surgery Progress Note ---
Subjective Progress Notes Subjective Feeling better this morning. No further abdominal pain. Breathing better. Physical Exam Vital Signs Date Time Temp Pulse Resp B/P (MAP) Pulse Ox O2 Delivery O2 Flow Rate FiO2 02/07/18 05:35 69 02/07/18 05:34 12 93 02/07/18 05:30 121/69 (86) 02/07/18 05:00 Nasal Cannula 2.0 02/07/18 03:30 98.3 General Appearance: Alert, Awake, No Acute Distress, Afebrile Neuro: No Gross deficits Eyes: PERRLA Chest: Other (Chest tube without air leak. Put out 255 mL of serosanguinous fluid since yesterday after initial 1.5L output with insertion of chest tube.) GI: Soft and Non-Tender Extremities: Warm, Perfused Result Diagram: 02/07/18 0530 02/06/18 1318 Assessment and Plan Problems: (1) Hemothorax on right Status: Acute Assessment & Plan: 02/06/18: Patient has a recurrence of the hemothorax on the right. The blood that I evacuated through the chest tube was I'll dark and appeared old with no clots. It is possible it is simply bloodstained effusion as well. Chest tube was placed without any problems. 1.5 L of thin dark maroon fluid were evacuated and continue to drain after I left. She also has a new left -sided pulmonary embolism. I have consult of the hospitalist to help manage this. I do not think that there is any ongoing bleeding. She has a chest tube in place that we can monitor for this. Because of her pulmonary emboli, I recommend that we go ahead and start anticoagulation. I have discussed this with the hospitalist and he will start a heparin drip so that if there is any evidence of ongoing bleeding then it can be stopped and will wear off rapidly. We will admit her into the ICU to facilitate a heparin drip. Her vitals are stable. Her post chest tube placement x-ray revealed good placement of the chest tube and near total evacuation of her right chest of fluid without evidence of pneumothorax. We'll use PPI for GI prophylaxis. We'll keep the chest tube in place until output is minimal. 02/07/18: Doing better this morning. Most fluid in right chest evacuated by chest tube. No PTX. Will continue heparin gtt today, start clear diet, follow labs, especially H/H. Ambulation, IS, pulmonary hygiene, PPI for GI proph. 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 (2) Pulmonary embolism on left Status: Acute Assessment & Plan: Heparin drip, when no signs of bleeding from chest then we' ll convert to longer acting anticoagulation which she will require for the next 3-6 months. Hospitalist consulted to help manage this. (3) Rib fractures Status: Acute Assessment & Plan: Pain control, Aggressive pulmonary toilet with incentive spirometer and deep breathing. (4) Nausea & vomiting Status: Acute Assessment & Plan: Possibly has an ileus related to her injury. We will make her nothing by mouth and treat her symptomatically with antiemetics and wait for return of bowel function. Condition Stable. Time Spent: < 30 min Exam Sepsis Risk: No Definite Risk Problem Qualifiers (1) Rib fractures: Encounter type: subsequent encounter Rib fracture type: multiple ribs Fracture type: closed Laterality: right Fracture healing: with routine healing Qualified Codes: S22.41XD - Multiple fractures of ribs, right side, subsequent encounter for fracture with routine healing (2) Nausea & vomiting: Vomiting type: unspecified Vomiting Intractability: non-intractable Qualified Codes: R11.2 - Nausea with vomiting, unspecified MELLO SCHMIDT MD Feb 07, 2018 06:34
[2018-02-07] MEDS: PANTOPRAZOLE SOD 40 MG IV VIAL IVP SCH (08:43)
[2018-02-07] MEDS: NS(*) 0.9% 1000 ML BAG 1,000 ML IV PRN ×2 (10:30→22:58)
--- NOTE | 2018-02-07 10:45 | Hospitalist Progress Note ---
Subjective Progress Notes Subjective No sob. Nausea and abdominal bloating improved. Physical Exam Vital Signs Date Time Temp Pulse Resp B/P (MAP) Pulse Ox O2 Delivery O2 Flow Rate FiO2 02/07/18 10:40 69 02/07/18 10:39 98.0 14 133/52 (79) 97 Nasal Cannula 2.0 Intake and Output 02/08/18 07:00 Intake Total 515 ml Balance 515 ml Intake IV Total 515 ml # Voids 1 General Appearance: Alert, Awake, No Acute Distress Respiratory: Clear to Auscultation Result Diagram: 02/07/18 0530 02/07/18 0530 Assessment and Plan Problems: (1) Pulmonary embolism on left Status: Acute Assessment & Plan: Imaging with CT not ideal, given high risk of complications with hemothorax would recommend CTA chest to evaluate possible PE of L lung when feasible. Trauma to R chest is only risk factor, denies any LE edema. Doing well on the heparin gtt and will plan on CTA of chest before committing pt to halfway anticoagulation. Pain management per Dr. Olvera (2) Hemothorax on right Status: Acute Assessment & Plan: CT in place on R, draining thin maroon liquid. Per surgery, pain management per surgery. (3) Nausea & vomiting Status: Acute Assessment & Plan: Improved with drainage of pleural effusion. Exam Sepsis Risk: No Definite Risk Problem Qualifiers (1) Nausea & vomiting: Vomiting type: unspecified Vomiting Intractability: non-intractable Qualified Codes: R11.2 - Nausea with vomiting, unspecified FELICIA SANTILLAN MD Feb 07, 2018 10:45
[2018-02-07] MEDS: PROMETHAZINE 25 MG/ML 1 ML AMP IVP PRN ×2 (15:58→22:51)
[2018-02-07] MEDS: HEPARIN* SOD/D5W 25000 U/500ML 500 ML IV SCH (19:39)
[2018-02-08] VITALS (8 sets, daily range): BP systolic 110–152; BP diastolic 56–86
[2018-02-08] MEDS: ACETAMINOPHEN(*)1000 MG/100 ML 100 ML IVPB SCH ×4 (01:01→17:35)
[2018-02-08 01:12] LABS: PLATELET COUNT, AUTOMATED 199 K/uL (150-450)
--- NOTE | 2018-02-08 06:27 | RADIOLOGY IMAGING REPORT ---
FACILITY: [facility] - [place] PATIENT NAME: Muna Butler : 1950 MR: [id number] V: [id number] EXAM DATE: ORDERING PHYSICIAN: MELLO SCHMIDT TECHNOLOGIST: Location: [facility] - [place] Patient: Muna Butler : 1950 Visit/Account:[id number] Date of Sevice: 02/08/2018 CHEST SINGLE AP COMPARISONS: Single view chest dated February 07, 2018 ADDITIONAL PERTINENT HISTORY: Right hemothorax FINDINGS: Life-support: Continued placement of a right-sided chest tube with its tip near the right lung apex. Cardiomediastinal silhouette: Negative. Pulmonary vasculature: Negative. Lung segura: Continued dense opacity at the right lung base. Minimal left basilar atelectatic change . Pleural spaces: Moderate sized right-sided pleural fluid collection, stable from previous exam. Osseous structures: Negative. Surrounding soft tissues: Negative. IMPRESSION: No significant change since previous exam. Report Dictated By: Tadeo Conrad MD at 02/08/2018 6:21 AM Report E-Signed By: Tadeo Conrad MD at 02/08/2018 6:23 AM WSN:[id number]
[2018-02-08] MEDS ORDERED: MAGNESIUM HYDROXIDE* 30ML UDCP PO PRN (06:40)
--- NOTE | 2018-02-08 06:49 | General Surgery Progress Note ---
Subjective Progress Notes Subjective No complaints this morning. Had an episode of emesis overnight but she attributes it to drinking cranberry juice on an empty stomach, it was too acidic for her. Pain well controlled. Physical Exam Vital Signs Date Time Temp Pulse Resp B/P (MAP) Pulse Ox O2 Delivery O2 Flow Rate FiO2 02/08/18 06:26 12 93 02/08/18 05:41 98.0 71 132/65 (87) Nasal Cannula 2.0 General Appearance: Alert, Awake, No Acute Distress, Afebrile Chest: Other (Chest tube to water seal, tidaling, no air leak, about 160cc out in 24 hours.) GI: Soft and Non-Tender Extremities: Warm, Perfused Result Diagram: 02/08/189902/08/1899 Assessment and Plan Problems: (1) Hemothorax on right Status: Acute Assessment & Plan: 02/06/18: Patient has a recurrence of the hemothorax on the right. The blood that I evacuated through the chest tube was I'll dark and appeared old with no clots. It is possible it is simply bloodstained effusion as well. Chest tube was placed without any problems. 1.5 L of thin dark maroon fluid were evacuated and continue to drain after I left. She also has a new left -sided pulmonary embolism. I have consult of the hospitalist to help manage this. I do not think that there is any ongoing bleeding. She has a chest tube in place that we can monitor for this. Because of her pulmonary emboli, I recommend that we go ahead and start anticoagulation. I have discussed this with the hospitalist and he will start a heparin drip so that if there is any evidence of ongoing bleeding then it can be stopped and will wear off rapidly. We will admit her into the ICU to facilitate a heparin drip. Her vitals are stable. Her post chest tube placement x-ray revealed good placement of the chest tube and near total evacuation of her right chest of fluid without evidence of pneumothorax. We'll use PPI for GI prophylaxis. We'll keep the chest tube in place until output is minimal. 02/07/18: Doing better this morning. Most fluid in right chest evacuated by chest tube. No PTX. Will continue heparin gtt today, start clear diet, follow labs, especially H/H. Ambulation, IS, pulmonary hygiene, PPI for GI proph. Continue in ICU until heparin gtt off, likely tomorrow morning if no signs of bleeding and then she can be converted to shelter anticoagulation for PE if CXR looks good and VATS not likely. 02/08/18: Doing well. No signs of bleeding. Pt wants regular diet as she's hungry. Will give her a trial of regular diet today. Will repeat Chest CT to confirm PEs and reassess right pleural fluid for adequate drainage. Will also stop heparin gtt and start shelter anticoagulation today. Start bowel regimen. Increase mobility, ambulation, IS, pulmonary hygiene, PPI. (2) Pulmonary embolism on left Status: Acute Assessment & Plan: Heparin drip, when no signs of bleeding from chest then we' ll convert to longer acting anticoagulation which she will require for the next 3-6 months. Hospitalist consulted to help manage this. (3) Rib fractures Status: Acute Assessment & Plan: Pain control, Aggressive pulmonary toilet with incentive spirometer and deep breathing. (4) Nausea & vomiting Status: Resolved Assessment & Plan: Possibly has an ileus related to her injury. We will make her nothing by mouth and treat her symptomatically with antiemetics and wait for return of bowel function. Condition Stable. Time Spent: < 30 min Exam Sepsis Risk: No Definite Risk Problem Qualifiers (1) Rib fractures: Encounter type: subsequent encounter Rib fracture type: multiple ribs Fracture type: closed Laterality: right Fracture healing: with routine healing Qualified Codes: S22.41XD - Multiple fractures of ribs, right side, subsequent encounter for fracture with routine healing (2) Nausea & vomiting: Vomiting type: unspecified Vomiting Intractability: non-intractable Qualified Codes: R11.2 - Nausea with vomiting, unspecified MELLO SCHMIDT MD Feb 08, 2018 06:49
[2018-02-08] MEDS ORDERED: IOPAMIDOL 76% 100 ML INFUS BTL 100 ML ONE (07:10)
[2018-02-08] MEDS ORDERED: NS 0.9% 25 ML BAG 50 ML ONE (07:10)
[2018-02-08] MEDS: HEPARIN* SOD/D5W 25000 U/500ML 500 ML IV SCH (08:19)
--- NOTE | 2018-02-08 08:23 | RADIOLOGY IMAGING REPORT ---
FACILITY: [facility] PATIENT NAME: Muna Butler : 1950 MR: [id number] V: [id number] EXAM DATE: ORDERING PHYSICIAN: MELLO SCHMIDT TECHNOLOGIST: Location: [facility] - [place] Patient: Muna Butler : 1950 Visit/Account:[id number] Date of Sevice: 02/08/2018 CTA CHEST WW/O CNTR (PULM ANG) HISTORY: Left PE, right pleural effusion TECHNIQUE: CTA chest with intravenous contrast attention to pulmonary arteries. Sagittal, coronal a nd slab 3D MIP coronal reconstructed images were also created for further evaluation and interpretati on. One of the following dose optimization techniques was utilized in the performance of this exam: Autom ated exposure control; adjustment of the mA and/or kV according to the patient's size; or use of an i terative reconstruction technique. Specific details can be referenced in the facility's radiology CT exam operational policy. CONTRAST: 75 mL Isovue-370. COMPARISON: CT dated February 06, 2018. FINDINGS: Heart/vessels: Satisfactory opacification of the pulmonary arteries. There is overall small to mode rate volume thrombus located within the distal left pulmonary artery extending into the segmental and subsegmental branches of the left lower lobe. Small amount of clot also identified within segmental branches of the left upper and right upper lobes. No visualized evidence for right heart strain. M ain pulmonary artery is mildly prominent measuring up to 3.5 cm which is nonspecific however can be s een in setting of pulmonary arterial hypertension. Otherwise negative. Mediastinum: Ill-defined right thyroid nodule, grossly unchanged. Otherwise negative. Lymph nodes: Negative. Lungs/pleura: Interval placement of a right-sided chest tube terminating within the right lung apex. There is a new small right apical pneumothorax. The chest tube appears to be surrounded by atelect atic right lower lung. Decrease in size of now small right pleural effusion which may be loculated. There is a small amount of heterogeneous hyperdense material within the right lung base, likely rela dorian to blood products. No complete atelectasis of the right lower lobe and partial atelectasis of th e right middle lobe. Trace left pleural effusion with mild associated atelectasis. No left-sided pn eumothorax. Visualized upper abdomen: Grossly unchanged fractures of the anterior right second, third, and fourt h ribs. Grossly unchanged anterolateral right fifth and sixth and lateral right seventh, eighth, chris th rib fractures. Please note, the more inferior ribs are incompletely visualized on this exam. No additional fractures identified. Rib fractures. Bones/soft tissues: Negative. IMPRESSION: 1. Better visualization of known pulmonary emboli with multifocal overall small volume thrombus, as above. No evidence for right heart strain. 2. Interval placement of right-sided chest tube with decrease in size of now small right pleural eff usion which may be loculated. There is near complete atelectasis of the right lower lobe and partial atelectasis of the right middle lobe. The chest tube appears to be surrounded by atelectatic right lower lobe parenchyma raising the possibility of intraparenchymal chest tube penetration and course. 3. Interval development of a small right pneumothorax 4. Small left pleural effusion with associated atelectasis. 5. Grossly unchanged multilevel right rib fractures from the second through ninth ribs. Report Dictated By: Alec Conn MD at 02/08/2018 8:03 AM Report E-Signed By: Alec Conn MD at 02/08/2018 8:19 AM WSN:[email or web address]
[2018-02-08] MEDS: RIVAROXABAN 10 MG TAB PO SCH ×2 (10:28→20:58)
[2018-02-08] MEDS: PANTOPRAZOLE SOD 40 MG IV VIAL IVP SCH (10:28)
[2018-02-08] MEDS: DOCUSATE SODIUM 100 MG CAP PO SCH ×2 (10:28→20:57)
--- NOTE | 2018-02-08 11:37 | Hospitalist Progress Note ---
Subjective Progress Notes Subjective Pt admitted for R sided pleural effusion/hemothorax, pulmonary emboli. No acute events overnight, feeling a little better. Patient Complains of: Neurological: No: Syncope, Confusion, Weakness Cardiovascular: No: Chest Pain, Palpitations, Orthostatic Hypotension Respiratory: No: Cough, Congestion, Shortness of Breath Gastrointestinal: No Nausea, No Vomiting Musculoskeletal: No: Pain Physical Exam Vital Signs Date Time Temp Pulse Resp B/P (MAP) Pulse Ox O2 Delivery O2 Flow Rate FiO2 02/08/18 11:03 70 02/08/18 08:28 95 Nasal Cannula 2.0 02/08/18 08:27 12 02/08/18 08:04 98.2 148/84 (105) Intake and Output 02/09/18 06:59 Intake Total 240 ml Balance 240 ml Intake Oral 240 ml # Voids 1 General Appearance: Alert, Awake, No Acute Distress Neuro: No Gross deficits Eyes: PERRLA ENT: Normal Neck: No Masses Cardiovascular: Normal Rhythm & Peripheral Pulses Respiratory: No Respiratory Distress (+ chest tube serosanguinous drainage) Chest: No Masses GI: Soft and Non-Tender Lymph: Cervical Nodes Benign Musculoskeletal: No Weakness/Pain Extremities: Soft and Non Tender, Warm, Pulses, No Edema Integumentary: Skin Intact without Lesion / Mass Psych: Alert & Oriented X3, Appropriate Mood & Affect Result Diagram: 02/08/18 0100 02/08/18 010 Assessment and Plan Problems: (1) Pulmonary embolism on left Status: Acute Assessment & Plan: Hgb stable on heparin gtt, CTA showed the clots in L side as had the CT with contrast. Begin Xarelto today stop heparin will need 3-6 mo therapy. Pain management per Dr. Olvera, medically stable to transfer to floor. (2) Hemothorax on right Status: Acute Assessment & Plan: CT in place on R, draining thin maroon liquid. Per surgery, pain management per surgery. (3) Nausea & vomiting Status: Resolved Assessment & Plan: Improved with drainage of pleural effusion. Exam Sepsis Risk: No Definite Risk Problem Qualifiers (1) Nausea & vomiting: Vomiting type: unspecified Vomiting Intractability: non-intractable Qualified Codes: R11.2 - Nausea with vomiting, unspecified MICHEL RIOS DO Feb 08, 2018 11:36
[2018-02-08] MEDS: PROMETHAZINE 25 MG/ML 1 ML AMP IVP PRN (11:56)
[2018-02-08] MEDS: NS(*) 0.9% 1000 ML BAG 1,000 ML IV PRN (15:34)
[2018-02-08] MEDS: MELATONIN 3 MG TAB PO PRN (22:20)
[2018-02-09] MEDS: ACETAMINOPHEN(*)1000 MG/100 ML 100 ML IVPB SCH ×2 (00:21→06:02)
[2018-02-09 00:23] VITALS: BP 121/60
[2018-02-09] MEDS: NS(*) 0.9% 1000 ML BAG 1,000 ML IV PRN (03:04)
[2018-02-09 04:45] VITALS: BP 119/91
--- NOTE | 2018-02-09 07:05 | RADIOLOGY IMAGING REPORT ---
FACILITY: [facility] PATIENT NAME: Muna Butler : 1950 MR: [id number] V: [id number] EXAM DATE: ORDERING PHYSICIAN: MELLO SCHMIDT TECHNOLOGIST: Location: [facility] - [place] Patient: Muna Butler : 1950 Visit/Account:[id number] Date of Sevice: 02/09/2018 CHEST SINGLE AP Additional pertinent History: Right effusion/chest tube COMPARISON STUDIES: 02/08/2018 FINDINGS: Right-sided chest tube reidentified. Improved aeration in the right lower lung when compared to the previous study. Less effusion and consolidation noted. Left lung remains well aerated. Cardiac and hilar structures well-maintained. Bony structures unremarkable. IMPRESSION: 1. Improving aeration in the right lower lung with less consolidation and effusion. Report Dictated By: Andrew Ordoñez MD at 02/09/2018 6:59 AM Report E-Signed By: Andrew Ordoñez MD at 02/09/2018 7:01 AM WSN:[id number]
[2018-02-09 07:48] VITALS: BP 140/77
[2018-02-09] MEDS: DOCUSATE SODIUM 100 MG CAP PO SCH ×2 (09:01→21:25)
[2018-02-09] MEDS: PANTOPRAZOLE SOD 40 MG IV VIAL IVP SCH (09:01)
[2018-02-09] MEDS: RIVAROXABAN 10 MG TAB PO SCH ×2 (09:02→21:25)
[2018-02-09] MEDS ORDERED: HYDROmorphone HCL 2 MG/ML SDV IVP PRN (10:10)
--- NOTE | 2018-02-09 10:19 | General Surgery Progress Note ---
Subjective Progress Notes Subjective Patient without complaints this morning other than that her hands are very sore from blood draws. No shortness of breath. Her chest wall pain is well controlled. No further nausea or vomiting, no abdominal pain or bloating. She is tolerating her regular diet without problems. Physical Exam Vital Signs Date Time Temp Pulse Resp B/P (MAP) Pulse Ox O2 Delivery O2 Flow Rate FiO2 02/09/18 08:00 89 02/09/18 07:59 18 02/09/18 07:48 98.2 75 140/77 (98) Room Air 02/09/18 04:45 2.0 Intake and Output 02/10/18 07:00 Intake Total 240 ml Balance 240 ml Intake Oral 240 ml General Appearance: Alert, Awake, No Acute Distress, Afebrile Chest: Other (chest tube is tidaling and had about 190 mL of output since the Pleur-evac was changed 12 hours ago. No air leak.) GI: Soft and Non-Tender Extremities: Warm, Perfused Result Diagram: 02/08/18 0100 02/08/18 0100 Assessment and Plan Problems: (1) Hemothorax on right Status: Acute Assessment & Plan: 02/06/18: Patient has a recurrence of the hemothorax on the right. The blood that I evacuated through the chest tube was I'll dark and appeared old with no clots. It is possible it is simply bloodstained effusion as well. Chest tube was placed without any problems. 1.5 L of thin dark maroon fluid were evacuated and continue to drain after I left. She also has a new left -sided pulmonary embolism. I have consult of the hospitalist to help manage this. I do not think that there is any ongoing bleeding. She has a chest tube in place that we can monitor for this. Because of her pulmonary emboli, I recommend that we go ahead and start anticoagulation. I have discussed this with the hospitalist and he will start a heparin drip so that if there is any evidence of ongoing bleeding then it can be stopped and will wear off rapidly. We will admit her into the ICU to facilitate a heparin drip. Her vitals are stable. Her post chest tube placement x-ray revealed good placement of the chest tube and near total evacuation of her right chest of fluid without evidence of pneumothorax. We'll use PPI for GI prophylaxis. We'll keep the chest tube in place until output is minimal. 7/19/18: Doing better this morning. Most fluid in right chest evacuated by chest tube. No PTX. Will continue heparin gtt today, start clear diet, follow labs, especially H/H. Ambulation, IS, pulmonary hygiene, PPI for GI proph. 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 02/08/18: Doing well. No signs of bleeding. Pt wants regular diet as she's hungry. Will give her a trial of regular diet today. Will repeat Chest CT to confirm PEs and reassess right pleural fluid for adequate drainage. Will also stop heparin gtt and start retirement anticoagulation today. Start bowel regimen. Increase mobility, ambulation, IS, pulmonary hygiene, PPI. 02/09/18: Doing well. Continued improvement. No signs of bleeding. Chest x-ray is improving with improved aeration in her right mid and lower lung. Still has fluid in the right base but not much. Will stop all IV fluids and convert meds to PO. Patient encouraged to walk and use incentive spirometer as much as possible. Chest tube is still putting out too much to safely remove without expecting the effusion to return. Based on her weight, expecting less than a 2 mL/kg per day output, I would like for her to have less than 150 mL per day out of her chest tube. I indicated to her that if things don't improve in the next couple of days in terms of the output then she may require a VATS with pleurodesis and I explained what this is. She seems to understand and seems happy with her progress. We'll stop blood draws for now to allow her hands to heal and will, at her request, D/C the SCDs as she is currently on blood thinners and ambulating. This will help her to be more mobile as well. (2) Pulmonary embolism on left Status: Acute Assessment & Plan: 02/06/18: Heparin drip, when no signs of bleeding from chest then we'll convert to longer acting anticoagulation which she will require for the next 3-6 months. Hospitalist consulted to help manage this. 02/08/18: Heparin drip was stopped and she is now on therapeutic Xarelto regimen. (3) Rib fractures Status: Acute Assessment & Plan: Pain control, Aggressive pulmonary toilet with incentive spirometer and deep breathing. (4) Nausea & vomiting Status: Resolved Assessment & Plan: Possibly has an ileus related to her injury. We will make her nothing by mouth and treat her symptomatically with antiemetics and wait for return of bowel function. Condition Stable Time Spent: < 30 min Exam Sepsis Risk: No Definite Risk Problem Qualifiers (1) Rib fractures: Encounter type: subsequent encounter Rib fracture type: multiple ribs Fracture type: closed Laterality: right Fracture healing: with routine healing Qualified Codes: S22.41XD - Multiple fractures of ribs, right side, subsequent encounter for fracture with routine healing (2) Nausea & vomiting: Vomiting type: unspecified Vomiting Intractability: non-intractable Qualified Codes: R11.2 - Nausea with vomiting, unspecified MELLO SCHMIDT MD Feb 09, 2018 10:19
--- NOTE | 2018-02-09 10:24 | Hospitalist Progress Note ---
Subjective Progress Notes Subjective She reports doing well and complains only about the blood draws. Physical Exam Vital Signs Date Time Temp Pulse Resp B/P (MAP) Pulse Ox O2 Delivery O2 Flow Rate FiO2 02/09/18 08:00 89 02/09/18 07:59 18 02/09/18 07:48 98.2 75 140/77 (98) Room Air 02/09/18 04:45 2.0 Intake and Output 02/10/18 07:00 Intake Total 240 ml Balance 240 ml Intake Oral 240 ml General Appearance: Alert, Awake Result Diagram: 02/08/18 0100 02/08/18 0100 Assessment and Plan Problems: (1) Pulmonary embolism on left Status: Acute Assessment & Plan: Hgb/Hct relatively stable on heparin drip. CT pulmonary angiogram showed the clots on left side as had the CT with contrast. She was transitioned to Xarelto yesterday. She will need 3-6 months of therapy. Pain management per Dr. Olvera. (2) Hemothorax on right Status: Acute Assessment & Plan: As per Dr. Olvera. Chest tube in place on right. (3) Nausea & vomiting Status: Resolved Assessment & Plan: Improved with drainage of pleural effusion. Exam Sepsis Risk: No Definite Risk Problem Qualifiers (1) Nausea & vomiting: Vomiting type: unspecified Vomiting Intractability: non-intractable Qualified Codes: R11.2 - Nausea with vomiting, unspecified JOSE ALFREDO BARAHONA MD Feb 09, 2018 10:24
[2018-02-09 11:21] VITALS: BP 141/75
[2018-02-09 15:37] VITALS: BP 104/62
[2018-02-09] MEDS ORDERED: ONDANSETRON 4 MG ODT TABDP SL PRN (17:50)
[2018-02-09 19:57] VITALS: BP 124/72
[2018-02-09] MEDS: MELATONIN 3 MG TAB PO PRN (21:26)
[2018-02-10 08:52] VITALS: BP 115/64
[2018-02-10] MEDS: DOCUSATE SODIUM 100 MG CAP PO SCH ×2 (09:00→21:06)
[2018-02-10] MEDS: RIVAROXABAN 10 MG TAB PO SCH ×2 (09:15→21:06)
[2018-02-10] MEDS: PANTOPRAZOLE SOD 40 MG TABEC PO SCH (09:15)
--- NOTE | 2018-02-10 09:33 | General Surgery Progress Note ---
Subjective Progress Notes Subjective No complaints. Continued improvement. Physical Exam Vital Signs Date Time Temp Pulse Resp B/P (MAP) Pulse Ox O2 Delivery O2 Flow Rate FiO2 02/10/18 08:52 98.4 90 115/64 (81) 96 Nasal Cannula 1.0 02/09/18 19:57 16 Intake and Output 02/11/18 07:00 # Voids 1 # Bowel Movements 1 General Appearance: Alert, Awake, No Acute Distress, Afebrile Chest: Other (Chest tube with 175cc out over the last couple of hours, serosanguinous. Tidaling, no air leak. CXR is stable with small right effusion , no PTX.) GI: Soft and Non-Tender Extremities: Warm, Perfused Result Diagram: 02/08/18 0100 02/08/18 0100 Assessment and Plan Problems: (1) Hemothorax on right Status: Acute Assessment & Plan: 02/06/18: Patient has a recurrence of the hemothorax on the right. The blood that I evacuated through the chest tube was I'll dark and appeared old with no clots. It is possible it is simply bloodstained effusion as well. Chest tube was placed without any problems. 1.5 L of thin dark maroon fluid were evacuated and continue to drain after I left. She also has a new left -sided pulmonary embolism. I have consult of the hospitalist to help manage this. I do not think that there is any ongoing bleeding. She has a chest tube in place that we can monitor for this. Because of her pulmonary emboli, I recommend that we go ahead and start anticoagulation. I have discussed this with the hospitalist and he will start a heparin drip so that if there is any evidence of ongoing bleeding then it can be stopped and will wear off rapidly. We will admit her into the ICU to facilitate a heparin drip. Her vitals are stable. Her post chest tube placement x-ray revealed good placement of the chest tube and near total evacuation of her right chest of fluid without evidence of pneumothorax. We'll use PPI for GI prophylaxis. We'll keep the chest tube in place until output is minimal. 02/07/18: Doing better this morning. Most fluid in right chest evacuated by chest tube. No PTX. Will continue heparin gtt today, start clear diet, follow labs, especially H/H. Ambulation, IS, pulmonary hygiene, PPI for GI proph. Continue in ICU until heparin gtt off, likely tomorrow morning if no signs of bleeding and then she can be converted to alf anticoagulation for PE if CXR looks good and VATS not likely. 02/08/18: Doing well. No signs of bleeding. Pt wants regular diet as she's hungry. Will give her a trial of regular diet today. Will repeat Chest CT to confirm PEs and reassess right pleural fluid for adequate drainage. Will also stop heparin gtt and start roaster[place] anticoagulation today. Start bowel regimen. Increase mobility, ambulation, IS, pulmonary hygiene, PPI. 02/09/18: Doing well. Continued improvement. No signs of bleeding. Chest x-ray is improving with improved aeration in her right mid and lower lung. Still has fluid in the right base but not much. Will stop all IV fluids and convert meds to PO. Patient encouraged to walk and use incentive spirometer as much as possible. Chest tube is still putting out too much to safely remove without expecting the effusion to return. Based on her weight, expecting less than a 2 mL/kg per day output, I would like for her to have less than 150 mL per day out of her chest tube. I indicated to her that if things don't improve in the next couple of days in terms of the output then she may require a VATS with pleurodesis and I explained what this is. She seems to understand and seems happy with her progress. We'll stop blood draws for now to allow her hands to heal and will, at her request, D/C the SCDs as she is currently on blood thinners and ambulating. This will help her to be more mobile as well. 02/10/18: Doing well. Chest tube still putting out too much serous fluid to remove and expect the effusion to not recur. Continue to monitor. Pulmonary hygiene. IS, Ambulation. On blood thinner for PE. On PPI for GI prophylaxis. I again discussed the possibility of VATS/pleurodesis if CT output doesn't come down in the next few days. (2) Pulmonary embolism on left Status: Acute Assessment & Plan: 02/06/18: Heparin drip, when no signs of bleeding from chest then we'll convert to longer acting anticoagulation which she will require for the next 3-6 months. Hospitalist consulted to help manage this. 02/08/18: Heparin drip was stopped and she is now on therapeutic Xarelto regimen. (3) Rib fractures Status: Acute Assessment & Plan: Pain control, Aggressive pulmonary toilet with incentive spirometer and deep breathing. (4) Nausea & vomiting Status: Resolved Assessment & Plan: Possibly has an ileus related to her injury. We will make her nothing by mouth and treat her symptomatically with antiemetics and wait for return of bowel function. Condition Stable Time Spent: < 30 min Exam Sepsis Risk: No Definite Risk Problem Qualifiers (1) Rib fractures: Encounter type: subsequent encounter Rib fracture type: multiple ribs Fracture type: closed Laterality: right Fracture healing: with routine healing Qualified Codes: S22.41XD - Multiple fractures of ribs, right side, subsequent encounter for fracture with routine healing (2) Nausea & vomiting: Vomiting type: unspecified Vomiting Intractability: non-intractable Qualified Codes: R11.2 - Nausea with vomiting, unspecified MELLO SCHMIDT MD Feb 10, 2018 09:33
[2018-02-10 11:22] VITALS: BP 120/71
[2018-02-10 15:49] VITALS: BP 128/73
[2018-02-10 20:28] VITALS: BP 124/71
[2018-02-10] MEDS: MELATONIN 3 MG TAB PO PRN (21:06)
[2018-02-10] MEDS: ACETAMINOPHEN 325 MG TAB PO PRN (21:06)
[2018-02-10 23:30] VITALS: BP 131/83
--- NOTE | 2018-02-11 07:02 | RADIOLOGY IMAGING REPORT ---
FACILITY: [facility] PATIENT NAME: Muna Butler : 1950 MR: [id number] V: [id number] EXAM DATE: ORDERING PHYSICIAN: MELLO SCHMIDT TECHNOLOGIST: Location: [facility] [place] Patient: Muna Butler : 1950 Visit/Account:[id number] Date of Sevice: 02/11/2018 CHEST SINGLE AP Additional pertinent History: Prolonged postop ileus COMPARISON STUDIES: 02/09/2018 FINDINGS: Support lines and catheters: Oxygen tubing Lungs and Pleura: Persistent parenchymal in the right lower lung from the right hilum obscuring the right hemidiaphragm compatible with an effusion and volume loss/consolidative change. No interval ove rall change in the appearance when accounting for differences in positioning when compared to the pre vious study. Heart and vasculature: Negative. [place] and Mediastinum: Negative. Bones and Chest wall: Negative. Upper Abdomen: Negative. IMPRESSION: 1. Persistent opacity in the right lower lung compatible with effusion/consolidation unchanged when c ompared to previous study Report Dictated By: Andrew Ordoñez MD at 02/11/2018 6:57 AM Report E-Signed By: Andrew Ordoñez MD at 02/11/2018 6:59 AM WSN:[id number]
[2018-02-11 07:40] VITALS: BP 123/66
--- NOTE | 2018-02-11 08:02 | General Surgery Progress Note ---
Subjective Progress Notes Subjective No complaints this morning. Physical Exam Vital Signs Date Time Temp Pulse Resp B/P (MAP) Pulse Ox O2 Delivery O2 Flow Rate FiO2 02/11/18 07:43 92 Nasal Cannula 0.5 02/11/18 07:40 98.5 69 15 123/66 (85) General Appearance: Alert, Awake, No Acute Distress, Afebrile Chest: Other (CHest tube tidaling, no air leak, put out 500mL of serous fluid over 24 hours.) GI: Soft and Non-Tender Extremities: Warm, Perfused Result Diagram: 02/08/189902/08/1899 Assessment and Plan Problems: (1) Hemothorax on right Status: Acute Assessment & Plan: 02/06/18: Patient has a recurrence of the hemothorax on the right. The blood that I evacuated through the chest tube was I'll dark and appeared old with no clots. It is possible it is simply bloodstained effusion as well. Chest tube was placed without any problems. 1.5 L of thin dark maroon fluid were evacuated and continue to drain after I left. She also has a new left -sided pulmonary embolism. I have consult of the hospitalist to help manage this. I do not think that there is any ongoing bleeding. She has a chest tube in place that we can monitor for this. Because of her pulmonary emboli, I recommend that we go ahead and start anticoagulation. I have discussed this with the hospitalist and he will start a heparin drip so that if there is any evidence of ongoing bleeding then it can be stopped and will wear off rapidly. We will admit her into the ICU to facilitate a heparin drip. Her vitals are stable. Her post chest tube placement x-ray revealed good placement of the chest tube and near total evacuation of her right chest of fluid without evidence of pneumothorax. We'll use PPI for GI prophylaxis. We'll keep the chest tube in place until output is minimal. 02/07/18: Doing better this morning. Most fluid in right chest evacuated by chest tube. No PTX. Will continue heparin gtt today, start clear diet, follow labs, especially H/H. Ambulation, IS, pulmonary hygiene, PPI for GI proph. Continue in ICU until heparin gtt off, likely tomorrow morning if no signs of bleeding and then she can be converted to tourist escort anticoagulation for PE if CXR looks good and VATS not likely. 02/08/18: Doing well. No signs of bleeding. Pt wants regular diet as she's hungry. Will give her a trial of regular diet today. Will repeat Chest CT to confirm PEs and reassess right pleural fluid for adequate drainage. Will also stop heparin gtt and start penitentiary anticoagulation today. Start bowel regimen. Increase mobility, ambulation, IS, pulmonary hygiene, PPI. 02/09/18: Doing well. Continued improvement. No signs of bleeding. Chest x-ray is improving with improved aeration in her right mid and lower lung. Still has fluid in the right base but not much. Will stop all IV fluids and convert meds to PO. Patient encouraged to walk and use incentive spirometer as much as possible. Chest tube is still putting out too much to safely remove without expecting the effusion to return. Based on her weight, expecting less than a 2 mL/kg per day output, I would like for her to have less than 150 mL per day out of her chest tube. I indicated to her that if things don't improve in the next couple of days in terms of the output then she may require a VATS with pleurodesis and I explained what this is. She seems to understand and seems happy with her progress. We'll stop blood draws for now to allow her hands to heal and will, at her request, D/C the SCDs as she is currently on blood thinners and ambulating. This will help her to be more mobile as well. 02/10/18: Doing well. Chest tube still putting out too much serous fluid to remove and expect the effusion to not recur. Continue to monitor. Pulmonary hygiene. IS, Ambulation. On blood thinner for PE. On PPI for GI prophylaxis. I again discussed the possibility of VATS/pleurodesis if CT output doesn't come down in the next few days. 02/11/18: Doing well but chest tube still putting out way too much fluid to consider removing it. Will need to consider VATS/pleurodesis tomorrow if no improvement in next 24 hours. Continue pulmonary hygiene, IS, ambulation, PPI, etc. Continue xarelto today for PE. Will need to stop this after tonight's dose in case surgery is required tomorrow afternoon. (2) Pulmonary embolism on left Status: Acute Assessment & Plan: 02/06/18: Heparin drip, when no signs of bleeding from chest then we'll convert to longer acting anticoagulation which she will require for the next 3-6 months. Hospitalist consulted to help manage this. 02/08/18: Heparin drip was stopped and she is now on therapeutic Xarelto regimen. (3) Rib fractures Status: Acute Assessment & Plan: Pain control, Aggressive pulmonary toilet with incentive spirometer and deep breathing. (4) Nausea & vomiting Status: Resolved Assessment & Plan: Possibly has an ileus related to her injury. We will make her nothing by mouth and treat her symptomatically with antiemetics and wait for return of bowel function. Condition Stable. Time Spent: < 30 min Exam Sepsis Risk: No Definite Risk Problem Qualifiers (1) Rib fractures: Encounter type: subsequent encounter Rib fracture type: multiple ribs Fracture type: closed Laterality: right Fracture healing: with routine healing Qualified Codes: S22.41XD - Multiple fractures of ribs, right side, subsequent encounter for fracture with routine healing (2) Nausea & vomiting: Vomiting type: unspecified Vomiting Intractability: non-intractable Qualified Codes: R11.2 - Nausea with vomiting, unspecified MELLO SCHIMDT MD Feb 11, 2018 08:02
[2018-02-11] MEDS: DOCUSATE SODIUM 100 MG CAP PO SCH ×2 (09:34→20:37)
[2018-02-11] MEDS: PANTOPRAZOLE SOD 40 MG TABEC PO SCH (09:34)
[2018-02-11] MEDS: RIVAROXABAN 10 MG TAB PO SCH (09:36)
[2018-02-11] MEDS: ACETAMINOPHEN 325 MG TAB PO PRN ×2 (09:38→22:19)
[2018-02-11 14:28] VITALS: BP 137/75
[2018-02-11 20:31] VITALS: BP 124/69
[2018-02-11 22:11] VITALS: BP 132/71
[2018-02-12 03:47] VITALS: BP 132/71
[2018-02-12] MEDS: MELATONIN 3 MG TAB PO PRN ×2 (03:48→22:27)
--- NOTE | 2018-02-12 06:49 | General Surgery Progress Note ---
Subjective Progress Notes Subjective No complaints. Ambulating without problems. Physical Exam Vital Signs Date Time Temp Pulse Resp B/P (MAP) Pulse Ox O2 Delivery O2 Flow Rate FiO2 02/12/18 03:47 97.7 87 20 132/71 (91) 92 Nasal Cannula 0.5 General Appearance: Alert, Awake, No Acute Distress, Afebrile Chest: Other (Chest tube with less than 100ml out over last 24 hours, tidaling , no air leak) Extremities: Warm, Perfused Result Diagram: 02/08/18 01002/08/180 Assessment and Plan Problems: (1) Hemothorax on right Status: Acute Assessment & Plan: 02/06/18: Patient has a recurrence of the hemothorax on the right. The blood that I evacuated through the chest tube was I'll dark and appeared old with no clots. It is possible it is simply bloodstained effusion as well. Chest tube was placed without any problems. 1.5 L of thin dark maroon fluid were evacuated and continue to drain after I left. She also has a new left -sided pulmonary embolism. I have consult of the hospitalist to help manage this. I do not think that there is any ongoing bleeding. She has a chest tube in place that we can monitor for this. Because of her pulmonary emboli, I recommend that we go ahead and start anticoagulation. I have discussed this with the hospitalist and he will start a heparin drip so that if there is any evidence of ongoing bleeding then it can be stopped and will wear off rapidly. We will admit her into the ICU to facilitate a heparin drip. Her vitals are stable. Her post chest tube placement x-ray revealed good placement of the chest tube and near total evacuation of her right chest of fluid without evidence of pneumothorax. We'll use PPI for GI prophylaxis. We'll keep the chest tube in place until output is minimal. 02/07/18: Doing better this morning. Most fluid in right chest evacuated by chest tube. No PTX. Will continue heparin gtt today, start clear diet, follow labs, especially H/H. Ambulation, IS, pulmonary hygiene, PPI for GI proph. Continue in ICU until heparin gtt off, likely tomorrow morning if no signs of bleeding and then she can be converted to care home anticoagulation for PE if CXR looks good and VATS not likely. 02/08/18: Doing well. No signs of bleeding. Pt wants regular diet as she's hungry. Will give her a trial of regular diet today. Will repeat Chest CT to confirm PEs and reassess right pleural fluid for adequate drainage. Will also stop heparin gtt and start engineer steam anticoagulation today. Start bowel regimen. Increase mobility, ambulation, IS, pulmonary hygiene, PPI. 02/09/18: Doing well. Continued improvement. No signs of bleeding. Chest x-ray is improving with improved aeration in her right mid and lower lung. Still has fluid in the right base but not much. Will stop all IV fluids and convert meds to PO. Patient encouraged to walk and use incentive spirometer as much as possible. Chest tube is still putting out too much to safely remove without expecting the effusion to return. Based on her weight, expecting less than a 2 mL/kg per day output, I would like for her to have less than 150 mL per day out of her chest tube. I indicated to her that if things don't improve in the next couple of days in terms of the output then she may require a VATS with pleurodesis and I explained what this is. She seems to understand and seems happy with her progress. We'll stop blood draws for now to allow her hands to heal and will, at her request, D/C the SCDs as she is currently on blood thinners and ambulating. This will help her to be more mobile as well. 02/10/18: Doing well. Chest tube still putting out too much serous fluid to remove and expect the effusion to not recur. Continue to monitor. Pulmonary hygiene. IS, Ambulation. On blood thinner for PE. On PPI for GI prophylaxis. I again discussed the possibility of VATS/pleurodesis if CT output doesn't come down in the next few days. 02/11/18: Doing well but chest tube still putting out way too much fluid to consider removing it. Will need to consider VATS/pleurodesis tomorrow if no improvement in next 24 hours. Continue pulmonary hygiene, IS, ambulation, PPI, etc. Continue xarelto today for PE. Will need to stop this after tonight's dose in case surgery is required tomorrow afternoon. 02/12/18: Doing well. Chest tube output has markedly decreased in the last 24 hours. Will watch it today and if continued low out put then will plan on removing it tomorrow morning. Continue xarelto, pulmonary hygiene, IS, ambulation, PPI, etc. (2) Pulmonary embolism on left Status: Acute Assessment & Plan: 02/06/18: Heparin drip, when no signs of bleeding from chest then we'll convert to longer acting anticoagulation which she will require for the next 3-6 months. Hospitalist consulted to help manage this. 02/08/18: Heparin drip was stopped and she is now on therapeutic Xarelto regimen. (3) Rib fractures Status: Acute Assessment & Plan: Pain control, Aggressive pulmonary toilet with incentive spirometer and deep breathing. (4) Nausea & vomiting Status: Resolved Assessment & Plan: Possibly has an ileus related to her injury. We will make her nothing by mouth and treat her symptomatically with antiemetics and wait for return of bowel function. Condition Stable. Time Spent: < 30 min Exam Sepsis Risk: No Definite Risk Problem Qualifiers (1) Rib fractures: Encounter type: subsequent encounter Rib fracture type: multiple ribs Fracture type: closed Laterality: right Fracture healing: with routine healing Qualified Codes: S22.41XD - Multiple fractures of ribs, right side, subsequent encounter for fracture with routine healing (2) Nausea & vomiting: Vomiting type: unspecified Vomiting Intractability: non-intractable Qualified Codes: R11.2 - Nausea with vomiting, unspecified MELLO SCHMIDT MD Feb 12, 2018 06:49
--- NOTE | 2018-02-12 07:20 | RADIOLOGY IMAGING REPORT ---
FACILITY: [facility] PATIENT NAME: Muna Butler : 1950 MR: [id number] V: [id number] EXAM DATE: ORDERING PHYSICIAN: MELLO SCHMIDT TECHNOLOGIST: Location: [facility] [place] Patient: Muna Butler : 1950 Visit/Account:[id number] Date of Sevice: 02/12/2018 CHEST SINGLE AP Additional pertinent History: Pleural effusion/chest tube COMPARISON STUDIES: 02/11/2018 FINDINGS: Support lines and catheters: Right-sided chest tube reidentified. Lungs and Pleura: Left lung segura well expanded. No infiltrates consolidations or effusions. Right lung reidentified is the opacity at the right lung base compatible with an effusion extending up to t he entry point of the chest catheter. Atelectasis and volume loss noted in the right lower lung with an apparent loculated effusion along the major fissure paralleling the chest tube. Right upper lung f ield is clear. Heart and vasculature: Central vasculature less engorged Rocío and Mediastinum: Negative. Bones and Chest wall: Numerous rib fractures Upper Abdomen: Negative. IMPRESSION: 1. Stable right chest tube and effusion/consolidation in the right lower lung. Slightly less effusion noted within the major fissure. Persistent loculated component as well as an unchanged appearance of the effusion extending up to the entry point of the chest tube. 2. Central vascular engorgement less pronounced. Report Dictated By: Andrew Ordoñez MD at 02/12/2018 7:14 AM Report E-Signed By: Andrew Ordoñez MD at 02/12/2018 7:16 AM WSN:[id number]
[2018-02-12] MEDS: DOCUSATE SODIUM 100 MG CAP PO SCH ×2 (09:40→21:24)
[2018-02-12] MEDS: ACETAMINOPHEN 325 MG TAB PO PRN ×3 (09:40→22:27)
[2018-02-12] MEDS: PANTOPRAZOLE SOD 40 MG TABEC PO SCH (09:40)
[2018-02-12] MEDS: RIVAROXABAN 10 MG TAB PO SCH ×2 (09:41→21:24)
[2018-02-12 09:47] VITALS: BP 123/76
[2018-02-12 10:55] VITALS: BP 136/75
[2018-02-12] MEDS ORDERED: tumeric PO (11:38)
[2018-02-12] MEDS ORDERED: GLUC-135 PO (11:38)
[2018-02-12] MEDS ORDERED: collagen PO (11:38)
[2018-02-12] MEDS ORDERED: LACT1CAP6 PO (11:38)
--- NOTE | 2018-02-12 16:04 | RADIOLOGY IMAGING REPORT ---
FACILITY: [facility] - [place] PATIENT NAME: Muna Butler : 1950 MR: [id number] V: [id number] EXAM DATE: ORDERING PHYSICIAN: MELLO SCHMIDT TECHNOLOGIST: Location: [facility] - [place] Patient: Muna Butler : 1950 Visit/Account:[id number] Date of Sevice: 02/10/2018 Exam type: CHEST SINGLE AP History: Right effusion, chest tube Comparison: February 09, 2018. Findings: Images have just now been submitted for formal dictation Right chest tube is again seen and appears unchanged. Slight improvement in the right basilar airspa ce consolidation. Left lung remains well aerated. Cardiac silhouette is stable. IMPRESSION: 1. Right chest tube appears unchanged Slight improvement of the right basilar airspace consolidation Report Dictated By: Ange Braun MD at 02/12/2018 3:58 PM Report E-Signed By: Ange Braun MD at 02/12/2018 4:00 PM WSN:[email or web address]
[2018-02-12 16:19] VITALS: BP 127/69
[2018-02-12 21:27] VITALS: BP 127/68
[2018-02-13] MEDS: ACETAMINOPHEN 325 MG TAB PO PRN ×2 (04:58→22:23)
--- NOTE | 2018-02-13 07:11 | General Surgery Progress Note ---
Subjective Progress Notes Subjective No complaints this morning. Physical Exam Vital Signs Date Time Temp Pulse Resp B/P (MAP) Pulse Ox O2 Delivery O2 Flow Rate FiO2 02/13/18 02:25 72 95 Nasal Cannula 02/12/18 21:27 0.5 02/12/18 21:27 98.3 20 127/68 (87) General Appearance: Alert, Awake, No Acute Distress, Afebrile Respiratory: Clear to Auscultation Chest: Other (Chest tube tidaling, no air leak, 120mL serous fluid out over 24 hours.) GI: Soft and Non-Tender Extremities: Warm, Perfused Assessment and Plan Problems: (1) Hemothorax on right Status: Acute Assessment & Plan: 02/06/18: Patient has a recurrence of the hemothorax on the right. The blood that I evacuated through the chest tube was I'll dark and appeared old with no clots. It is possible it is simply bloodstained effusion as well. Chest tube was placed without any problems. 1.5 L of thin dark maroon fluid were evacuated and continue to drain after I left. She also has a new left -sided pulmonary embolism. I have consult of the hospitalist to help manage this. I do not think that there is any ongoing bleeding. She has a chest tube in place that we can monitor for this. Because of her pulmonary emboli, I recommend that we go ahead and start anticoagulation. I have discussed this with the hospitalist and he will start a heparin drip so that if there is any evidence of ongoing bleeding then it can be stopped and will wear off rapidly. We will admit her into the ICU to facilitate a heparin drip. Her vitals are stable. Her post chest tube placement x-ray revealed good placement of the chest tube and near total evacuation of her right chest of fluid without evidence of pneumothorax. We'll use PPI for GI prophylaxis. We'll keep the chest tube in place until output is minimal. 02/07/18: Doing better this morning. Most fluid in right chest evacuated by chest tube. No PTX. Will continue heparin gtt today, start clear diet, follow labs, especially H/H. Ambulation, IS, pulmonary hygiene, PPI for GI proph. 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 02/08/18: Doing well. No signs of bleeding. Pt wants regular diet as she's hungry. Will give her a trial of regular diet today. Will repeat Chest CT to confirm PEs and reassess right pleural fluid for adequate drainage. Will also stop heparin gtt and start usp anticoagulation today. Start bowel regimen. Increase mobility, ambulation, IS, pulmonary hygiene, PPI. 02/09/18: Doing well. Continued improvement. No signs of bleeding. Chest x-ray is improving with improved aeration in her right mid and lower lung. Still has fluid in the right base but not much. Will stop all IV fluids and convert meds to PO. Patient encouraged to walk and use incentive spirometer as much as possible. Chest tube is still putting out too much to safely remove without expecting the effusion to return. Based on her weight, expecting less than a 2 mL/kg per day output, I would like for her to have less than 150 mL per day out of her chest tube. I indicated to her that if things don't improve in the next couple of days in terms of the output then she may require a VATS with pleurodesis and I explained what this is. She seems to understand and seems happy with her progress. We'll stop blood draws for now to allow her hands to heal and will, at her request, D/C the SCDs as she is currently on blood thinners and ambulating. This will help her to be more mobile as well. 02/10/18: Doing well. Chest tube still putting out too much serous fluid to remove and expect the effusion to not recur. Continue to monitor. Pulmonary hygiene. IS, Ambulation. On blood thinner for PE. On PPI for GI prophylaxis. I again discussed the possibility of VATS/pleurodesis if CT output doesn't come down in the next few days. 02/11/18: Doing well but chest tube still putting out way too much fluid to consider removing it. Will need to consider VATS/pleurodesis tomorrow if no improvement in next 24 hours. Continue pulmonary hygiene, IS, ambulation, PPI, etc. Continue xarelto today for PE. Will need to stop this after tonight's dose in case surgery is required tomorrow afternoon. 02/12/18: Doing well. Chest tube output has markedly decreased in the last 24 hours. Will watch it today and if continued low out put then will plan on removing it tomorrow morning. Continue xarelto, pulmonary hygiene, IS, ambulation, PPI, etc. 02/13/18: Chest tube removed this morning. Will get a CXR in 4 hours then tomorrow morning. If OK then will d/c tomorrow. (2) Pulmonary embolism on left Status: Acute Assessment & Plan: 02/06/18: Heparin drip, when no signs of bleeding from chest then we'll convert to longer acting anticoagulation which she will require for the next 3-6 months. Hospitalist consulted to help manage this. 02/08/18: Heparin drip was stopped and she is now on therapeutic Xarelto regimen. (3) Rib fractures Status: Acute Assessment & Plan: Pain control, Aggressive pulmonary toilet with incentive spirometer and deep breathing. (4) Nausea & vomiting Status: Resolved Assessment & Plan: Possibly has an ileus related to her injury. We will make her nothing by mouth and treat her symptomatically with antiemetics and wait for return of bowel function. Condition Stable. Time Spent: < 30 min Exam Sepsis Risk: No Definite Risk Problem Qualifiers (1) Rib fractures: Encounter type: subsequent encounter Rib fracture type: multiple ribs Fracture type: closed Laterality: right Fracture healing: with routine healing Qualified Codes: S22.41XD - Multiple fractures of ribs, right side, subsequent encounter for fracture with routine healing (2) Nausea & vomiting: Vomiting type: unspecified Vomiting Intractability: non-intractable Qualified Codes: R11.2 - Nausea with vomiting, unspecified MLELO SCHMIDT MD Feb 13, 2018 07:11
--- NOTE | 2018-02-13 07:24 | RADIOLOGY IMAGING REPORT ---
[place] [facility] [place] Muna [place] : 1950 MR: [id number] V: [id number] EXAM DATE: ORDERING PHYSICIAN: MELLO SCHMIDT TECHNOLOGIST: Location: [facility] Patient: Muna Butler : 1950 Visit/Account:[id number] Date of Sevice: 02/13/2018 CHEST SINGLE AP Additional pertinent History: Right chest tube COMPARISON STUDIES: 02/12/2018 FINDINGS: Support lines and catheters: Right chest tube seen extending to the right upper lung field medially Lungs and Pleura: Persistent opacity in the right lower lung compatible with an effusion extending u p to the entry point of the chest tube at the eighth rib level. Diminished conspicuity of the apparen t loculated fluid within the fissure Heart and vasculature: Negative. Rocío and Mediastinum: Negative. Bones and Chest wall: Negative. Upper Abdomen: Negative. IMPRESSION: 1. Persistent unchanged effusion in the right lower lung. Adjacent atelectatic lung change similar. S light decreasing size of what is likely a loculated component within the fissure.. Report Dictated By: Andrew Ordoñez MD at 02/13/2018 7:18 AM Report E-Signed By: Andrew Ordoñez MD at 02/13/2018 7:21 AM WSN:[id number]
[2018-02-13 09:40] VITALS: BP 124/69
[2018-02-13] MEDS: PANTOPRAZOLE SOD 40 MG TABEC PO SCH (09:41)
[2018-02-13] MEDS: DOCUSATE SODIUM 100 MG CAP PO SCH ×2 (09:41→20:50)
[2018-02-13] MEDS: RIVAROXABAN 10 MG TAB PO SCH ×2 (09:41→20:50)
[2018-02-13 11:09] VITALS: BP 120/63
--- NOTE | 2018-02-13 11:17 | RADIOLOGY IMAGING REPORT ---
FACILITY: [facility] - [place] PATIENT NAME: Muna Butler : 1950 MR: [id number] V: [id number] EXAM DATE: ORDERING PHYSICIAN: MELLO SCHMIDT TECHNOLOGIST: Location: [facility] - [place] Patient: Muna Butler : 1950 Visit/Account:[id number] Date of Sevice: 02/13/2018 EXAMINATION: Portable chest radiograph single view at 1049 hours HISTORY: Chest tube removed. COMPARISON: CTA chest from 02/08/2018 and chest radiograph from 02/13/2018 at 0604 hours. FINDINGS: A single portable AP view of the chest is obtained. Lines/tubes: The right chest tube has been removed. Lungs/pleura: There is no right pneumothorax visualized. Moderate loculated right pleural effusion and basilar consolidation is unchanged. Left lung is clear. Heart: Negative. Mediastinum: Atherosclerotic calcifications of the aorta. Bony structures/body wall: A few subacute right rib fractures are unchanged. IMPRESSION: 1. Removal of the right chest tube. No pneumothorax visualized. 2. Moderate loculated right pleural effusion and basilar consolidation is unchanged. Report Dictated By: Ami Thapa MD at 02/13/2018 11:08 AM Report E-Signed By: Ami Thapa MD at 02/13/2018 11:13 AM WSN:[email or web address]
[2018-02-13 16:43] VITALS: BP 155/78
[2018-02-13 19:12] VITALS: BP 141/80
[2018-02-13] MEDS: MELATONIN 3 MG TAB PO PRN (22:23)
[2018-02-13 22:24] VITALS: BP 135/76
[2018-02-14 05:32] VITALS: BP 130/71
--- NOTE | 2018-02-14 06:45 | Short(Outpt) Discharge Summary ---
Discharge Summary Reason for Hosp/Final Diag: (1) Hemothorax on right Status: Acute Hospital Course & Plan: 02/06/18: Patient has a recurrence of the hemothorax on the right. The blood that I evacuated through the chest tube was I'll dark and appeared old with no clots. It is possible it is simply bloodstained effusion as well. Chest tube was placed without any problems. 1.5 L of thin dark maroon fluid were evacuated and continue to drain after I left. She also has a new left-sided pulmonary embolism. I have consult of the hospitalist to help manage this. I do not think that there is any ongoing bleeding. She has a chest tube in place that we can monitor for this. Because of her pulmonary emboli, I recommend that we go ahead and start anticoagulation. I have discussed this with the hospitalist and he will start a heparin drip so that if there is any evidence of ongoing bleeding then it can be stopped and will wear off rapidly. We will admit her into the ICU to facilitate a heparin drip. Her vitals are stable. Her post chest tube placement x-ray revealed good placement of the chest tube and near total evacuation of her right chest of fluid without evidence of pneumothorax. We'll use PPI for GI prophylaxis. We'll keep the chest tube in place until output is minimal. 02/07/18: Doing better this morning. Most fluid in right chest evacuated by chest tube. No PTX. Will continue heparin gtt today, start clear diet, follow labs, especially H/H. Ambulation, IS, pulmonary hygiene, PPI for GI proph. 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 02/08/18: Doing well. No signs of bleeding. Pt wants regular diet as she's hungry. Will give her a trial of regular diet today. Will repeat Chest CT to confirm PEs and reassess right pleural fluid for adequate drainage. Will also stop heparin gtt and start care home anticoagulation today. Start bowel regimen. Increase mobility, ambulation, IS, pulmonary hygiene, PPI. 02/09/18: Doing well. Continued improvement. No signs of bleeding. Chest x-ray is improving with improved aeration in her right mid and lower lung. Still has fluid in the right base but not much. Will stop all IV fluids and convert meds to PO. Patient encouraged to walk and use incentive spirometer as much as possible. Chest tube is still putting out too much to safely remove without expecting the effusion to return. Based on her weight, expecting less than a 2 mL/kg per day output, I would like for her to have less than 150 mL per day out of her chest tube. I indicated to her that if things don't improve in the next couple of days in terms of the output then she may require a VATS with pleurodesis and I explained what this is. She seems to understand and seems happy with her progress. We'll stop blood draws for now to allow her hands to heal and will, at her request, D/C the SCDs as she is currently on blood thinners and ambulating. This will help her to be more mobile as well. 02/10/18: Doing well. Chest tube still putting out too much serous fluid to remove and expect the effusion to not recur. Continue to monitor. Pulmonary hygiene. IS, Ambulation. On blood thinner for PE. On PPI for GI prophylaxis. I again discussed the possibility of VATS/pleurodesis if CT output doesn't come down in the next few days. 02/11/18: Doing well but chest tube still putting out way too much fluid to consider removing it. Will need to consider VATS/pleurodesis tomorrow if no improvement in next 24 hours. Continue pulmonary hygiene, IS, ambulation, PPI, etc. Continue xarelto today for PE. Will need to stop this after tonight's dose in case surgery is required tomorrow afternoon. 02/12/18: Doing well. Chest tube output has markedly decreased in the last 24 hours. Will watch it today and if continued low out put then will plan on removing it tomorrow morning. Continue xarelto, pulmonary hygiene, IS, ambulation, PPI, etc. 02/13/18: Chest tube removed this morning. Will get a CXR in 4 hours then tomorrow morning. If OK then will d/c tomorrow. 02/14/18: CXR stable. No PTX, stable effusion in right base. Pt is doing very well. Will d/c to home with O/P f/u. Will recheck CXR as O/P next week. (2) Pulmonary embolism on left Status: Acute Hospital Course & Plan: 02/06/18: Heparin drip, when no signs of bleeding from chest then we'll convert to longer acting anticoagulation which she will require for the next 3-6 months. Hospitalist consulted to help manage this. 02/08/18: Heparin drip was stopped and she is now on therapeutic Xarelto regimen. 02/14/18: Send home on Xarelto, PE regimen. Will plan on 6 month rx then stop. (3) Rib fractures Status: Acute Hospital Course & Plan: Pain control, Aggressive pulmonary toilet with incentive spirometer and deep breathing. (4) Nausea & vomiting Status: Resolved Hospital Course & Plan: Possibly has an ileus related to her injury. We will make her nothing by mouth and treat her symptomatically with antiemetics and wait for return of bowel function. Departure Discharge to: Home, Self Care Discharge Instructions Home Meds Reported Medications Gluc Carlin/Chondro Carlin A/Vit C/Mn (GLUCOSAMINE CHONDROITIN TAB) 1 Each Tablet, 1 EACH PO 02/12/18 Lactobacillus Combination No.4 (PROBIOTIC) 1 Each Capsule, 1 EACH PO, CAPSULE 02/12/18 [tumeric] No Conflict Check, 1 TAB PO 02/12/18 [collagen] No Conflict Check, 1 TAB PO 02/12/18 Naproxen Sodium (ALEVE) 220 Mg Capsule, 220 MG PO TID, CAPSULE 02/06/18 Melatonin (Melatonin) 5 Mg Tab.ir.er 01/25/18 Multivitamin (MULTI-VITAMIN DAILY) 1 Each Tablet, 1 EACH PO 01/25/18 Follow up Referrals: General Surgery - 02/20/18 @ Surgery, General with Mello Schmidt Md You have a follow appointment scheduled with Dr. Schmidt on 02/20/18, at 4:30pm. Please get a chest x-ray just prior to your appointment. Diet: Regular Activity: As Tolerated Special Instructions: Continue to work on deep breathing, walking and sitting symetrically, sitting and standing up straight. Keep using the incentive spirometer at home when you're not as physically active. Problem Qualifiers (1) Rib fractures: Encounter type: subsequent encounter Rib fracture type: multiple ribs Fracture type: closed Laterality: right Fracture healing: with routine healing Qualified Codes: S22.41XD - Multiple fractures of ribs, right side, subsequent encounter for fracture with routine healing (2) Nausea & vomiting: Vomiting type: unspecified Vomiting Intractability: non-intractable Qualified Codes: R11.2 - Nausea with vomiting, unspecified MELLO SCHMIDT MD Feb 14, 2018 06:45
[2018-02-14] MEDS ORDERED: RIVA15TA PO (06:51)
[2018-02-14] MEDS ORDERED: RIVA20TA PO (06:51)
[2018-02-14 07:11] VITALS: BP 124/64
--- NOTE | 2018-02-14 08:28 | RADIOLOGY IMAGING REPORT ---
FACILITY: [facility] [place] PATIENT NAME: Muna Butler : 1950 MR: [id number] V: [id number] EXAM DATE: ORDERING PHYSICIAN: MELLO SCHMIDT TECHNOLOGIST: Location: [facility] [place] Patient: Muna Butler : 1950 Visit/Account:[id number] Date of Sevice: 02/14/2018 Exam type: CHEST SINGLE AP History: Right effusion, chest tube removed Comparison: February 13, 2018 at 10:50 AM. Findings: Right chest tube has been previously removed. Moderate right pleural effusion which is partially loc ulated producing a pseudomass in the right midlung field appears relatively unchanged. There has bee n slight improvement of the right basilar consolidation. There is now a thin linear lucency along th e medial aspect of the right mid thorax which may represent a tiny right pneumothorax or pneumomedias tinum. There is no evidence of mediastinal shift. The left lung is free of consolidation. The card iac silhouette is normal. IMPRESSION: 1. Moderate right pleural effusion which is partially loculated remains relatively unchanged Minimal improvement of the right basilar consolidation Thin linear lucency seen along the medial aspect of the right mid thorax which may represent a tiny r ight pneumothorax or pneumomediastinum Report Dictated By: Ange Braun MD at 02/14/2018 8:20 AM Report E-Signed By: Ange Braun MD at 02/14/2018 8:23 AM [id number]
[2018-02-14] MEDS: DOCUSATE SODIUM 100 MG CAP PO SCH (09:32)
[2018-02-14] MEDS: ACETAMINOPHEN 325 MG TAB PO PRN (09:32)
[2018-02-14] MEDS: RIVAROXABAN 10 MG TAB PO SCH (09:32)
[2018-02-14] MEDS: PANTOPRAZOLE SOD 40 MG TABEC PO SCH (09:32)
--- NOTE | 2018-02-18 07:37 | Procedure Note ---
Chest Tube Procedure Note Reason for Chest Tube Recurrent right hemothorax Consent Signed: Yes Chest Tube Location: Right Lung Complications: None Anesthesia Used: 1% Lidocaine CC's of Anesthesia: 5 Chest Tube Size Fr.: 36 Chest Tube Suction: Pleura-Vac Chest Tube Secured: 0 Silk Suture Post Procedure Xray Ordered: Yes Comment This procedure was performed in the ER on day of admission 02/06/18. MELLO SCHMIDT MD Feb 18, 2018 07:37
== END 2018-02-14 10:20 | disposition home or self-care (01) | DRG 186 ==
LOC: ER 12:44 → MED 15:55 → ICU 15:55 → MED 02-08 12:55
PROVIDERS: ADMIT Surgery; ATTEND Surgery
PROC: 0W9930Z Drainage of Right Pleural Cavity with Drainage Device, Percutaneous Approach (ICD-10-PCS; principal; 2018-02-06)
DX: J94.2 Hemothorax (principal); I26.99 Other pulmonary embolism without acute cor pulmonale; K56.7 Ileus, unspecified; S22.41XD Multiple fractures of ribs, right side, subsequent encounter for fracture with routine healing; W55.19XD Other contact with horse, subsequent encounter; Z88.2 Allergy status to sulfonamides; Z88.8 Allergy status to other drugs, medicaments and biological substances
CPT/HCPCS: 36415; 71045; 71046; 71260; 71275; 74177; 81001; 82040; 82247; 82310; 82374; 82435; 82565; 82947; 83690; 84075; 84132; 84155; 84295; 84450; 84460; 84520; 85025; 85520; 85610; 85730; 97161; 97165; 99153; A7048; C9113; J0131; J1170; J1644; J2405; J2550; J2704; J7030; Q9967; S0119

== ENCOUNTER → 2018-02-20 | Outpatient (CLI) | payer MEDICARE, BC ==
[2018-02-07 09:32] VITALS: BMI 26.0
[~2018-02-20] MED LIST changes: +GLUC-135 PO; +LACT1CAP6 PO; +NAPR220C12 PO; +RIVA15TA PO; +RIVA20TA PO; +collagen PO; +tumeric PO
--- NOTE | 2018-02-20 17:29 | RADIOLOGY IMAGING REPORT ---
FACILITY: [facility] - [place] PATIENT NAME: Muna Butler : 1950 MR: [id number] V: [id number] EXAM DATE: ORDERING PHYSICIAN: MELLO SCHMIDT TECHNOLOGIST: Location: [facility] Patient: Muna Butler : 1950 Visit/Account:[id number] Date of Sevice: 02/20/2018 2 VIEWS CHEST INDICATION: Previous right hemothorax. Right rib fractures. COMPARISON: 02/14/2018. FINDINGS: Cardiomediastinal silhouette and pulmonary vessels within normal limits. There is continued but improved opacities seen in the right lower lobe most likely due to contusion. Lung segura are otherwise clear. There is a persistent small right pleural effusion with mild right basal atelectasis. No left effusio n. No indication of pneumothorax. No nodule. Upper abdomen is unremarkable. Right rib fractures again identified. No new fracture. Stable compress ion of the T5 and T6 vertebral bodies. IMPRESSION: 1. There is a persistent small right pleural effusion. There is improving opacity seen in the right l ower lobe which could be due to contusion. No pneumothorax. I called report to MELLO SCHMIDT at 02/20/2018 5:24 PM. Report Dictated By: Juan F Colbert at 02/20/2018 5:14 PM Report E-Signed By: Juan F Colbert at 02/20/2018 5:24 PM WSN:[id number]
== END ==
LOC: RAD 16:42
PROVIDERS: ATTEND Surgery
DX: S22.39XA Fracture of one rib, unspecified side, initial encounter for closed fracture (principal); J90 Pleural effusion, not elsewhere classified
CPT/HCPCS: 71046

== ENCOUNTER → 2018-02-25 | Outpatient (CLI) | payer MEDICARE, BC ==
[2018-02-07 09:32] VITALS: BMI 26.0
--- NOTE | 2018-02-25 13:58 | RADIOLOGY IMAGING REPORT ---
FACILITY: [facility] PATIENT NAME: Muna Butler : 1950 MR: [id number] V: [id number] EXAM DATE: ORDERING PHYSICIAN: MELLO SCHMIDT TECHNOLOGIST: Location: [facility] [place] Patient: Muna Butler : 1950 Visit/Account:[id number] Date of Sevice: 02/25/2018 Exam type: CHEST PA AND LAT History: Rib fractures, hemopneumothorax on right, shortness of breath, follow-up Comparison: February 20, 2018. Findings: Moderate right pleural effusion appears partially loculated appears relatively unchanged. There is n o evidence of a pneumothorax or mediastinal shift. Right basilar airspace consolidation also remains unchanged. The left lung is well aerated. The cardiac silhouette is normal in size. Multiple righ t-sided rib fractures again noted stable mild compression fractures in the thoracic spine also unchan ged IMPRESSION: 1. Moderate size right pleural effusion that appears partially loculated right basilar airspace cons olidation remains relatively unchanged when compared the prior study. No evidence of a pneumothorax or mediastinal shift Report Dictated By: Ange Braun MD at 02/25/2018 1:51 PM Report E-Signed By: Ange Braun MD at 02/25/2018 1:54 PM WSN:[email or web address]
== END ==
LOC: RAD 10:45
PROVIDERS: ATTEND Surgery
DX: J94.2 Hemothorax (principal); S22.39XA Fracture of one rib, unspecified side, initial encounter for closed fracture
CPT/HCPCS: 71046